=== PATIENT | female | born 1930 | race Caucasian/White ===

== ENCOUNTER 2017-04-15 20:36 | Inpatient (IN) | payer MEDICARE, BC ==
[~2017-04-15] VITALS: Ht 158.8 cm; Wt 98.5 kg
[2017-04-15 21:36] LABS: BASO % 1 % (0-3); EOS % 3 % (0-3); HEMATOCRIT 30.9 % (36.0-47.0); LYMPH # 1.3 x10^3/uL (1.0-4.8); LYMPH % 20 % (24-48); MEAN CORPUSCULAR HEMOGLOBIN 32 pg (25-35); MEAN CORPUSCULAR HGB CONC 36 g/dL (31-37); MEAN CORPUSCULAR VOLUME 89 fL (79-100); MONO % 14 % (0-9); NEUT % 63 % (31-73); PLATELET COUNT 109 x10^3/uL (140-400); RED BLOOD COUNT 3.46 x10^6/uL (3.50-5.40); RED CELL DISTRIBUTION WIDTH 14.7 % (11.5-14.5); WHITE BLOOD COUNT 6.5 x10^3/uL (4.0-11.0)
--- NOTE | 2017-04-15 21:37 | PHYS DOC ---
Past Medical History Past Medical History: CHF, Diabetes-Type II, High Cholesterol, Hypertension Past Surgical History: Other Additional Past Surgical Histo: heart valve Alcohol Use: None Drug Use: None Adult General Chief Complaint Chief Complaint: FEVER HPI HPI Patient is a 87 year old F who presents with low-grade temp for the past day. She had recent heart valve replacement done at [facility] and was discharged this week. Discharge instructions stated that the patient developed a low-grade temperature to return to the emergency room immediately. Patient has been complaining of increased urinary frequency with a temperature of 100.2 at home. Patient also complained of increased soreness of breath with exertion however when she is sitting down or lying down she is not short of breath. Patient denies any chest pain. Patient denies any nausea/vomiting/diarrhea. Patient has no other complaints. PCP: Dr. Domingo Pertinent exam findings: Heart was regular rate and rhythm without murmurs Lungs are clear to auscultation bilaterally without crackles wheezes or rales ED course: Patient was seen and examined in the emergency room CBC, CMP, UA, blood cultures , lactic acid, chest x-ray, EKG were ordered 0028: Discussed plan with the patient to admit for treatment of a hospital- acquired pneumonia 0031: Patient will be admitted to Dr. Maier Pertinent results: 2050: Sinus tach rate of 103 no STEMI CTA of the chest shows pneumonia with no PE Troponin 0.96 MDM: After reviewing the chart, CC/HPI/PMH, physical exam, [lab results], [ radiological results], do not believe the patient is having acute GA despite the elevated troponin which I believe is elevated from her recent heart procedure however the patient does have pneumonia requiring admission to the hospital for IV antibiotics because it hospital-acquired. Review of Systems Review of Systems GEN: Low-grade temperature HEENT: Denies blurred vision, sore throat CV: Denies chest pain RESP: Shortness of breath GI: Increased urinary frequency NEURO: Denies confusion, dizziness MSK: Denies weakness, joint pain/swelling Current Medications Current Medications Current Medications Medications (Trade) Dose Ordered Sig/Karina Start Time Stop Time Status Last Admin Dose Admin Azithromycin 250 ml @ 250 mls/hr 1X ONCE 04/16/17 01:00 04/16/17 01:00 DC Ceftriaxone Sodium 50 ml @ 100 mls/hr 1X ONCE 04/16/17 00:30 04/16/17 00:30 DC Info (Do NOT chart on this entry -- for MONITORING) 1 each PRN DAILY PRN 04/15/17 22:30 04/17/17 22:29 Iohexol (Omnipaque 300 Mg/ml) 60 ml 1X ONCE 04/15/17 23:00 04/15/17 23:01 DC Levofloxacin/ Dextrose 150 ml @ 100 mls/hr 1X ONCE 04/16/17 01:00 04/16/17 02:29 Morphine Sulfate 2 mg PRN Q2HR PRN 04/16/17 00:30 04/17/17 00:29 UNV Ondansetron HCl (Zofran) 4 mg PRN Q8HRS PRN 04/16/17 00:30 04/17/17 00:29 Piperacillin Sod/ Tazobactam Sod 4.5 gm/Sodium Chloride 100 ml @ 200 mls/hr 1X ONCE 04/16/17 01:00 04/16/17 01:29 Vancomycin HCl 1.25 gm/Sodium Chloride 500 ml @ 250 mls/hr 1X STAT 04/16/17 00:18 04/16/17 02:17 UNV Allergies Allergies Allergies Coded Allergies Type Severity Reaction Last Updated Verified meperidine Allergy Intermediate 04/15/17 Yes morphine Allergy Intermediate 04/15/17 Yes Physical Exam Physical Exam GEN.: No apparent distress. Alert and oriented. HEENT: Head is normocephalic, atraumatic NECK: Supple. LUNGS: CTAB. HEART: RRR, S1, S2 present. Peripheral pulses intact ABDOMEN: Soft, nontender. Positive bowel sounds. EXTREMITIES: Without any cyanosis. NEUROLOGIC: Normal speech, normal tone PSYCHIATRIC: Normal affect, normal mood. SKIN: No ulcerations Current Patient Data Vital Signs Vital Signs Date Time Temp Pulse Resp B/P (MAP) Pulse Ox O2 Delivery O2 Flow Rate FiO2 04/15/17 21:03 97.9 107 20 158/72 (100) 96 Room Air 97.9 Lab Values Laboratory Tests Test 04/15/17 21:10 04/15/17 21:34 White Blood Count 6.5 x10^3/uL (4.0-11.0) Red Blood Count 3.46 x10^6/uL (3.50-5.40) L Hemoglobin 11.0 g/dL (12.0-15.5) L Hematocrit 30.9 % (36.0-47.0) L Mean Corpuscular Volume 89 fL (79-100) Mean Corpuscular Hemoglobin 32 pg (25-35) Mean Corpuscular Hemoglobin Concent 36 g/dL (31-37) Red Cell Distribution Width 14.7 % (11.5-14.5) H Platelet Count 109 x10^3/uL (140-400) L Neutrophils (%) (Auto) 63 % (31-73) Lymphocytes (%) (Auto) 20 % (24-48) L Monocytes (%) (Auto) 14 % (0-9) H Eosinophils (%) (Auto) 3 % (0-3) Basophils (%) (Auto) 1 % (0-3) Neutrophils # (Auto) 4.1 x10^3uL (1.8-7.7) Lymphocytes # (Auto) 1.3 x10^3/uL (1.0-4.8) Monocytes # (Auto) 0.9 x10^3/uL (0.0-1.1) Eosinophils # (Auto) 0.2 x10^3/uL (0.0-0.7) Basophils # (Auto) 0.0 x10^3/uL (0.0-0.2) Sodium Level 139 mmol/L (136-145) Potassium Level 4.0 mmol/L (3.5-5.1) Chloride Level 105 mmol/L (98-107) Carbon Dioxide Level 23 mmol/L (21-32) Anion Gap 11 (6-14) Blood Urea Nitrogen 17 mg/dL (7-20) Creatinine 1.1 mg/dL (0.6-1.0) H Estimated GFR (Cockcroft-Gault) 46.8 BUN/Creatinine Ratio 15 (6-20) Glucose Level 159 mg/dL (70-99) H Lactic Acid Level 1.2 mmol/L (0.4-2.0) Calcium Level 8.6 mg/dL (8.5-10.1) Total Bilirubin 0.6 mg/dL (0.2-1.0) Aspartate Amino Transferase (AST) 27 U/L (15-37) Alanine Aminotransferase (ALT) 31 U/L (14-59) Alkaline Phosphatase 102 U/L (46-116) Troponin I Quantitative 0.096 ng/mL (0.000-0.055) Total Protein 6.5 g/dL (6.4-8.2) Albumin 3.0 g/dL (3.4-5.0) L Albumin/Globulin Ratio 0.9 (1.0-1.7) L Lipase 163 U/L (73-393) Urine Collection Type Unknown Urine Color Yellow Urine Clarity Clear Urine pH 6.0 Urine Specific [place] 1.010 Urine Protein Negative mg/dL (NEG-TRACE) Urine Glucose (UA) Negative mg/dL (NEG) Urine Ketones (Stick) Negative mg/dL (NEG) Urine Blood Negative (NEG) Urine Nitrite Negative (NEG) Urine Bilirubin Negative (NEG) Urine Urobilinogen Dipstick 0.2 mg/dL (0.2 mg/dL) Urine Leukocyte Esterase Negative (NEG) Urine RBC 0 /HPF (0-2) Urine WBC Occ /HPF (0-4) Urine Squamous Epithelial Cells Few /LPF Urine Bacteria 0 /HPF (0-FEW) Laboratory Tests 04/15/17 21:10 Laboratory Tests 04/15/17 21:10 EKG EKG Sinus tach rate of 103 no STEMI [] Radiology/Procedures Radiology/Procedures CTA chest: IMPRESSION: 1. No evidence of pulmonary embolism. 2. Coronary artery calcifications. 3. Diffuse groundglass airspace opacities identified in the bilateral lungs could be pulmonary edema or infiltrates. Patchy right upper lobe, bibasilar lung airspace opacities likely pneumonia or atelectasis. 4. 2.4 cm hyperdensity identified in the right kidney could be hyperdense cyst or mass. Recommend follow-up nonemergent ultrasound kidneys. Electronically signed by: Manuelito Titus MD (04/15/2017 11:33 PM) CXR: Patchy infiltrates bilateral lower lobes [] Course & Med Decision Making Course & Med Decision Making Pertinent Labs and Imaging studies reviewed. (See chart for details) [] Dragon Disclaimer Dragon Disclaimer This electronic medical record was generated, in whole or in part, using a voice recognition dictation system. Departure Departure Impression: Primary Impression: Hospital-acquired pneumonia Additional Impression: Elevated troponin Disposition: 09 ADMITTED INPATIENT Admitting Physician: Harshil Maier Condition: STABLE Problem Qualifiers GOVIND STRATTON DO Apr 15, 2017 21:37
[2017-04-15 21:38] LABS: CALCIUM 8.6 mg/dL (8.5-10.1); CREATININE 1.1 mg/dL (0.6-1.0); GFR 46.8
[2017-04-15 21:41] LABS: BILIRUBIN,URINE NEGATIVE (NEG); GLUCOSE,URINE NEGATIVE (NEG); NITRITE,URINE NEGATIVE (NEG); PROTEIN,URINE NEGATIVE (NEG-TRACE); UROBILINOGEN,URINE 0.2 mg/dL (0.2 mg/dL)
[2017-04-15 21:44] LABS: ALBUMIN/GLOBULIN RATIO 0.9 (1.0-1.7); TOTAL BILIRUBIN 0.6 mg/dL (0.2-1.0); TOTAL PROTEIN 6.5 g/dL (6.4-8.2)
[2017-04-15 21:45] LABS: BACTERIA,URINE 0 /HPF (0-FEW); RBC,URINE 0 /HPF (0-2); SQUAMOUS EPITHELIAL CELL,UR FEW /LPF; WBC,URINE OCC /HPF (0-4)
[2017-04-15] MEDS ORDERED: CONTRAST GIVEN MC PRN (22:30)
[2017-04-15] MEDS ORDERED: IOHEXOL 300 MG/ML 75 ML VIAL IV ONE (23:00)
--- NOTE | 2017-04-15 23:36 | RAD ---
Examination: CT angiogram of the chest HISTORY: History of shortness of breath, fever COMPARISON: None available TECHNIQUE: CT angiography images of chest were performed with IV contrast. Coronal and sagittal 3-D MIP reformats are performed. Exposure: One or more of the following individualized dose reduction techniques were utilized for this examination: 1. Automated exposure control 2. Adjustment of the mA and/or kV according to patient size 3. Use of iterative reconstruction technique. FINDINGS: The visualized thyroid gland appears unremarkable. Mild cardiomegaly. Surgical changes identified at the aortic root. Coronary artery calcifications. There is no evidence of filling defect identified in the main pulmonary arterial trunk and right and left main pulmonary arteries and the visualized lobar, segmental branch of the pulmonary arteries. Patchy airspace opacities identified in the right upper lobe, bibasilar lungs likely pneumonia or atelectasis. Ground glass airspace opacities identified in the bilateral pulmonary edema or groundglass infiltrates. Trace bilateral pleural effusions. Mild cardiomegaly. The visualized liver, spleen, adrenal unremarkable. Mild fat stranding identified about the bilateral kidneys, nonspecific. There is a exophytic density measuring 2.4 x 2.4 cm identified in the right kidney and measuring 49 Hounsfield units could be hyperdense cyst or mass. Moderate aortic atherosclerosis. Moderate degenerative changes thoracic spine. IMPRESSION: 1. No evidence of pulmonary embolism. 2. Coronary artery calcifications. 3. Diffuse groundglass airspace opacities identified in the bilateral lungs could be pulmonary edema or infiltrates. Patchy right upper lobe, bibasilar lung airspace opacities likely pneumonia or atelectasis. 4. 2.4 cm hyperdensity identified in the right kidney could be hyperdense cyst or mass. Recommend follow-up nonemergent ultrasound kidneys. Electronically signed by: Manuelito Titus MD (04/15/2017 11:33 PM)
[2017-04-16] VITALS (7 sets, daily range): BP systolic 110–135; BP diastolic 33–63
[2017-04-16] MEDS ORDERED: VANCOMYCIN 1.25 GM in IV NORMAL SALINE 500ML BAG 500 ML IV STA (00:18)
[2017-04-16] MEDS ORDERED: MORPHINE SULFATE 2 MG/ML DISP.SYRIN. IV PRN (00:30)
[2017-04-16] MEDS ORDERED: ONDANSETRON PF 4 MG/2 ML VIAL. IV PRN ×2 (00:30→11:15)
[2017-04-16] MEDS ORDERED: AZITHRMYCN 500MG IVPB FOR OMNI 250 ML IV ONE (01:00)
[2017-04-16] MEDS ORDERED: PIPERACILLIN/TAZOBACTAM 4.5 GM in IV NORMAL SALINE 100ML 100 ML IV ONE (01:00)
[2017-04-16] MEDS ORDERED: VANCOMYCIN 2 GM in IV NORMAL SALINE 500ML BAG 500 ML IV ONE (01:30)
[2017-04-16] MEDS ORDERED: TRAM50TA PO (02:09)
[2017-04-16] MEDS ORDERED: LINA5TAB4 PO (02:09)
[2017-04-16] MEDS ORDERED: ALLO300T PO (02:09)
[2017-04-16] MEDS ORDERED: AMLO10TA4 PO (02:09)
[2017-04-16] MEDS ORDERED: MULT-154 PO (02:09)
[2017-04-16] MEDS ORDERED: CARV6.252 PO (02:09)
[2017-04-16] MEDS ORDERED: FURO20TA3 PO (02:09)
[2017-04-16] MEDS ORDERED: GABA-586 PO (02:09)
[2017-04-16] MEDS ORDERED: ATORVASTATIN CA80 MG PO (02:09)
[2017-04-16] MEDS ORDERED: CLOP75TA57 PO (02:09)
[2017-04-16] MEDS ORDERED: GLYB2.5T2 PO (02:09)
[2017-04-16] MEDS ORDERED: LISI20TA PO (02:09)
[2017-04-16] MEDS ORDERED: POTASSIUM CHLO10 MEQ PO (02:09)
[2017-04-16] MEDS ORDERED: FOLI1TAB16 PO (02:09)
[2017-04-16] MEDS ORDERED: DOCU100C28 PO (02:09)
[2017-04-16] MEDS ORDERED: METF500T4 PO (02:09)
[2017-04-16] MEDS ORDERED: ASPI-630 PO (02:09)
--- NOTE | 2017-04-16 02:24 | ACF ---
Admission Forms Criteria TELEMETRY CARE Telemetry Admission Guidelines (Place 'X' for any and all applicable criteria): Admission to telemetry [A] may be indicated for ANY ONE of the following(1)(2)(3 )(4)(5): [X]I. Cardiac disease, including ANY ONE of the following (9)(10)(11)(12)(13 ): [ ]a) Postacute MN [ ]b) Low-risk patients with ST-segment elevation MN who have undergone successful percutaneous coronary intervention [ ]c) Unstable angina [ ]d) Suspected MN (until it is ruled out) [ ]e) Post cardiac surgery (first 48 to 72 hours unless complications occur) [X]f) Acute arrhythmias (including significant tachycardia or bradycardia) [B] [ ]g) Firing of an implantable cardioverter defibrillator [C] [ ]h) Suspected pacemaker or implantable cardioverter defibrillator malfunction (10) [ ]i) New administration or adjustment of an antiarrhythmic drug [D ] [ ]j) Child admitted for acute congestive heart failure [ ]j) Long QT syndrome [ ]k) Advanced heart block (eg, second-degree Mobitz type II, third- degree heart block) [ ]l) Acute myocarditis or pericarditis [ ]m) Short-term (ambulatory or inpatient) monitoring after a cardiac procedure as indicated by ANY ONE of the following [E]: [ ]i) Electrophysiologic studies [ ]ii) Percutaneous coronary intervention with stent placement [ ]iii) Pacemaker placement with cardiac conduction defect [ ]iv) Implantable cardiac defibrillator placement [ ]II. Drug overdose or poisoning with substance that causes arrhythmias or QT prolongation (eg, phenothiazines, sympathomimetic agents, cyclic antidepressants, digitalis, antiarrhythmic drugs)(15) [ ]III. Short-term (ambulatory or inpatient) monitoring after therapeutic or diagnostic procedure requiring conscious sedation or anesthesia (eg, endoscopy, elective cardioversion) [ ]IV. Acute cerebrovascular even[F](18) [ ]V. Massive blood transfusion (eg, at least 10 units of packed red blood cells in 24 hours) [ ]. Variceal bleeding after endoscopy, sclerotherapy, or IV vasopressin [ ]VII. Uncorrected electrolyte abnormalities associated with an increased risk of dangerous arrhythmia [G]; examples include [ ]a) Hyperkalemia with attributable ECG changes [ ]b) Potassium greater than 6.5 mmol/L (mEq/L) in a patient without history of chronic renal disease [ ]c) Prolonged QT attributed to hypokalemia, hypomagnesemia, or hypocalcemia [ ]VIII.Unexplained syncope or other neurologic event suspected of being due to arrhythmia due to a finding that increases risk; examples include(19)(20)(21): [ ]a) High-risk ECG findings (eg, bifascicular block, bradycardia, abnormal QT interval, ventricular pre- excitation) [ ]b) History of previous syncope due to arrhythmia [ ]c) Abnormal ventricular function (eg, reduced ejection fraction ) [ ]d) Exertional or supine syncope [ ]e) Concerning syncope characteristics (eg, sudden loss of consciousness without prodrome) [ ]f) Family history of sudden [ ]g) Use of arrhythmogenic medication [ ]h) Suspected cardiac ischemia [ ]i) Known channelopathy (eg, long QT syndrome, Brugada syndrome, or catecholaminergic paroxysmal ventricular tachycardia) [ ]j) Known structural heart disease (eg, hypertrophic cardiomyopathy , severe valvular disease) [ ]k) Palpitations preceding syncope The original [employer] content created by [employer] has been revised. The portions of the content which have been revised are identified through the use of italic text or in bold, and [email or web address] has neither reviewed nor approved the modified material. All other unmodified content is copyright [employer]. Please see references footnoted in the original [employer] edition 2016 Admission Criteria Met?: Yes JIMMIE PARIKH Apr 16, 2017 02:24
[2017-04-16] MEDS ORDERED: BENZOCAINE/MENTHOL LOZENGE. PO PRN (02:30)
[2017-04-16] MEDS: VANCOMYCIN PER PHARMACY MC PRN ×2 (03:00→11:41)
--- NOTE | 2017-04-16 08:14 | RAD ---
Indication shortness of air. A single view of the chest was obtained. No prior imaging is available. Heart size is slightly enlarged.. There is no congestive heart failure or focal infiltrate seen. Visualized bony structures appear grossly intact. IMPRESSION: No acute finding apparent in the chest
--- NOTE | 2017-04-16 09:55 | PDOC ---
Provider Note Provider Note [id number] dyspnea pulm infilt pneumonia vs chf abx. BD, ARLENE Calle MD Apr 16, 2017 09:55
--- NOTE | 2017-04-16 10:53 | CONS ---
DATE OF CONSULTATION: 04/16/2017 I was asked to see this 87-year-old lady for shortness of breath, cough, abnormal chest x-ray. HISTORY OF PRESENT ILLNESS: She is a lifelong nonsmoker. She underwent heart valve replacement at [facility] on 04/11/2017, she was sent home on 04/14/2017. She started to feel weak and had low-grade fever up to 100.2. She has had increased shortness of breath and cough. She has small amount of sputum production. She denies pain. PAST MEDICAL HISTORY: CHF, diabetes mellitus, hypercholesterolemia, hypertension, status post heart valve replacement. ALLERGIES: MORPHINE. SOCIAL HISTORY: She is a lifelong nonsmoker. MEDICATIONS: She was given azithromycin, Rocephin, levofloxacin, Zosyn and vancomycin. REVIEW OF SYSTEMS: As mentioned as above. Other systems are otherwise negative. PHYSICAL EXAMINATION: GENERAL: This is an overweight lady. VITAL SIGNS: Her O2 saturation is 96%, respiratory rate 18, heart rate 89, blood pressure 135/63, temperature 97.9. HEENT: Normocephalic, atraumatic. Pupils equal, round, reactive to light. Throat is clear. Nose is clear. NECK: There is no JVD, lymphadenopathy or thyromegaly. CARDIOVASCULAR: Regular rate and rhythm. PMI is nondisplaced. CHEST: Inspection is normal. LUNGS: Clear to auscultation. There is no wheezing. ABDOMEN: Soft. Bowel sounds are good. There is no mass. EXTREMITIES: There is no edema. LYMPHATICS: There is no lymphadenopathy. NEUROLOGIC: Alert and oriented x 3. SKIN: Warm. LABORATORY DATA: I reviewed the following lab data. CT of the chest did not show pulmonary embolism, it showed coronary artery calcification, diffuse ground-glass opacities in bilateral lungs, patchy right upper lobe basilar opacity and right renal cyst. IMPRESSION: 1. Dyspnea, multifactorial in etiology. 2. Abnormal chest x-ray. 3. Pulmonary infiltrate, pneumonia versus congestive heart failure and she has had fever. I suspect this is dealing with pneumonia versus others. 4. Status post heart valve replacement. 5. Hypertension. 6. Diabetes mellitus. 7. Hypercholesterolemia. PLAN AND RECOMMENDATIONS: 1. Titrate FiO2 to keep O2 saturation 92%. 2. Start bronchodilator. 3. Continue vancomycin and Zosyn. 4. Panculture. 5. Monitor respiratory status very closely. 6. The findings and recommendations were discussed with the patient and her daughter. They understood and agreed to proceed with the plan. 7. PT, OT. 8. echo Thank you very much for allowing me to participate in care of this very nice lady. ARLENE DESIR M.D. DR: Chuckie JOB#: [id number] / [id number] SENTHIL
--- NOTE | 2017-04-16 11:08 | PDOC1 ---
History and Physical Family History Family History: Other (unknown to pt) Social History Smoke: No ALCOHOL: none Drugs: None Current Problem List Problem List Problems Medical Problems: (1) Elevated troponin Status: Acute Current Medications Current Medications Current Medications Medications (Trade) Dose Ordered Sig/Karina Start Time Stop Time Status Last Admin Dose Admin Albuterol/ Ipratropium (Duoneb) 3 ml RTQID 04/16/17 10:00 Azithromycin 250 ml @ 250 mls/hr 1X ONCE 04/16/17 01:00 04/16/17 01:00 DC Ceftriaxone Sodium 50 ml @ 100 mls/hr 1X ONCE 04/16/17 00:30 04/16/17 00:30 DC Info (Do NOT chart on this entry -- for MONITORING) 1 each PRN DAILY PRN 04/15/17 22:30 04/17/17 22:29 Iohexol (Omnipaque 300 Mg/ml) 60 ml 1X ONCE 04/15/17 23:00 04/15/17 23:01 DC Levofloxacin/ Dextrose 150 ml @ 100 mls/hr 1X ONCE 04/16/17 01:00 04/16/17 02:29 DC 04/16/17 00:54 100 MLS/HR Morphine Sulfate 2 mg PRN Q2HR PRN 04/16/17 00:30 04/17/17 00:29 UNV Ondansetron HCl (Zofran) 4 mg PRN Q8HRS PRN 04/16/17 00:30 04/17/17 00:29 Piperacillin Sod/ Tazobactam Sod 4.5 gm/Sodium Chloride 100 ml @ 200 mls/hr 1X ONCE 04/16/17 01:00 04/16/17 01:29 DC 04/16/17 00:51 200 MLS/HR Throat Lozenges (Cepacol Sore Throat Lozenge) 1 kelly PRN Q2HRS PRN 04/16/17 02:30 04/16/17 02:31 1 KELLY Vancomycin HCl 1 each 1X ONCE 04/17/17 22:30 04/17/17 22:31 Vancomycin HCl (Vanco Per Pharmacy) 1 each PRN DAILY PRN 04/16/17 00:30 04/16/17 03:00 1 EACH Vancomycin HCl 1.25 gm/Sodium Chloride 500 ml @ 250 mls/hr 1X STAT 04/16/17 00:18 04/16/17 02:17 UNV Vancomycin HCl 1.5 gm/Sodium Chloride 500 ml @ 250 mls/hr Q24H 04/16/17 23:00 Vancomycin HCl 2 gm/Sodium Chloride 500 ml @ 250 mls/hr 1X ONCE 04/16/17 01:30 04/16/17 03:29 DC 04/16/17 01:44 250 MLS/HR Allergies Allergies Allergies Coded Allergies Type Severity Reaction Last Updated Verified meperidine Allergy Intermediate 04/15/17 Yes morphine Allergy Intermediate 04/15/17 Yes ROS Review of System CONSTITUTIONAL: No fever or chills EYES: No recent changes SKIN: No rash or itching CARDIOVASCULAR: No chest pain, syncope, palpitations, or edema RESPIRATORY: cough GASTROINTESTINAL: No nausea, vomiting or abdominal pain NEUROLOGICAL: No headaches or weakness ENDOCRINE: No cold or heat intolerance GENITOURINARY: No urgency or frequency of urination MUSCULOSKELETAL: No back pain or joint pain LYMPHATICS: No enlarged lymph nodes PSYCHIATRIC: No anxiety or depression Physical Exam Physical Exam GEN.: No apparent distress. Alert and oriented. obese HEENT: Head is normocephalic, atraumatic NECK: Supple. no JVD LUNGS: Clear to auscultation. basal rales. HEART: RRR, S1, S2 present. Peripheral pulses intact ABDOMEN: Soft, nontender. Positive bowel sounds. EXTREMITIES: Without any cyanosis. NEUROLOGIC: Normal speech, normal tone PSYCHIATRIC: Normal affect, normal mood. SKIN: Vitals Vitals Vital Signs Date Time Temp Pulse Resp B/P (MAP) Pulse Ox O2 Delivery O2 Flow Rate FiO2 04/16/17 07:00 97.9 89 18 135/63 (87) 96 Room Air 97.9 Labs Labs Laboratory Tests Test 04/15/17 21:10 04/15/17 21:34 White Blood Count 6.5 x10^3/uL (4.0-11.0) Red Blood Count 3.46 x10^6/uL (3.50-5.40) Hemoglobin 11.0 g/dL (12.0-15.5) Hematocrit 30.9 % (36.0-47.0) Mean Corpuscular Volume 89 fL (79-100) Mean Corpuscular Hemoglobin 32 pg (25-35) Mean Corpuscular Hemoglobin Concent 36 g/dL (31-37) Red Cell Distribution Width 14.7 % (11.5-14.5) Platelet Count 109 x10^3/uL (140-400) Neutrophils (%) (Auto) 63 % (31-73) Lymphocytes (%) (Auto) 20 % (24-48) Monocytes (%) (Auto) 14 % (0-9) Eosinophils (%) (Auto) 3 % (0-3) Basophils (%) (Auto) 1 % (0-3) Neutrophils # (Auto) 4.1 x10^3uL (1.8-7.7) Lymphocytes # (Auto) 1.3 x10^3/uL (1.0-4.8) Monocytes # (Auto) 0.9 x10^3/uL (0.0-1.1) Eosinophils # (Auto) 0.2 x10^3/uL (0.0-0.7) Basophils # (Auto) 0.0 x10^3/uL (0.0-0.2) Sodium Level 139 mmol/L (136-145) Potassium Level 4.0 mmol/L (3.5-5.1) Chloride Level 105 mmol/L (98-107) Carbon Dioxide Level 23 mmol/L (21-32) Anion Gap 11 (6-14) Blood Urea Nitrogen 17 mg/dL (7-20) Creatinine 1.1 mg/dL (0.6-1.0) Estimated GFR (Cockcroft-Gault) 46.8 BUN/Creatinine Ratio 15 (6-20) Glucose Level 159 mg/dL (70-99) Lactic Acid Level 1.2 mmol/L (0.4-2.0) Calcium Level 8.6 mg/dL (8.5-10.1) Total Bilirubin 0.6 mg/dL (0.2-1.0) Aspartate Amino Transf (AST/SGOT) 27 U/L (15-37) Alanine Aminotransferase (ALT/SGPT) 31 U/L (14-59) Alkaline Phosphatase 102 U/L (46-116) Troponin I Quantitative 0.096 ng/mL (0.000-0.055) Total Protein 6.5 g/dL (6.4-8.2) Albumin 3.0 g/dL (3.4-5.0) Albumin/Globulin Ratio 0.9 (1.0-1.7) Lipase 163 U/L (73-393) Urine Collection Type Unknown Urine Color Yellow Urine Clarity Clear Urine pH 6.0 Urine Specific [place] 1.010 Urine Protein Negative mg/dL (NEG-TRACE) Urine Glucose (UA) Negative mg/dL (NEG) Urine Ketones (Stick) Negative mg/dL (NEG) Urine Blood Negative (NEG) Urine Nitrite Negative (NEG) Urine Bilirubin Negative (NEG) Urine Urobilinogen Dipstick 0.2 mg/dL (0.2 mg/dL) Urine Leukocyte Esterase Negative (NEG) Urine RBC 0 /HPF (0-2) Urine WBC Occ /HPF (0-4) Urine Squamous Epithelial Cells Few /LPF Urine Bacteria 0 /HPF (0-FEW) Laboratory Tests Test 04/15/17 21:10 04/15/17 21:34 White Blood Count 6.5 x10^3/uL (4.0-11.0) Red Blood Count 3.46 x10^6/uL (3.50-5.40) Hemoglobin 11.0 g/dL (12.0-15.5) Hematocrit 30.9 % (36.0-47.0) Mean Corpuscular Volume 89 fL (79-100) Mean Corpuscular Hemoglobin 32 pg (25-35) Mean Corpuscular Hemoglobin Concent 36 g/dL (31-37) Red Cell Distribution Width 14.7 % (11.5-14.5) Platelet Count 109 x10^3/uL (140-400) Neutrophils (%) (Auto) 63 % (31-73) Lymphocytes (%) (Auto) 20 % (24-48) Monocytes (%) (Auto) 14 % (0-9) Eosinophils (%) (Auto) 3 % (0-3) Basophils (%) (Auto) 1 % (0-3) Neutrophils # (Auto) 4.1 x10^3uL (1.8-7.7) Lymphocytes # (Auto) 1.3 x10^3/uL (1.0-4.8) Monocytes # (Auto) 0.9 x10^3/uL (0.0-1.1) Eosinophils # (Auto) 0.2 x10^3/uL (0.0-0.7) Basophils # (Auto) 0.0 x10^3/uL (0.0-0.2) Sodium Level 139 mmol/L (136-145) Potassium Level 4.0 mmol/L (3.5-5.1) Chloride Level 105 mmol/L (98-107) Carbon Dioxide Level 23 mmol/L (21-32) Anion Gap 11 (6-14) Blood Urea Nitrogen 17 mg/dL (7-20) Creatinine 1.1 mg/dL (0.6-1.0) Estimated GFR (Cockcroft-Gault) 46.8 BUN/Creatinine Ratio 15 (6-20) Glucose Level 159 mg/dL (70-99) Lactic Acid Level 1.2 mmol/L (0.4-2.0) Calcium Level 8.6 mg/dL (8.5-10.1) Total Bilirubin 0.6 mg/dL (0.2-1.0) Aspartate Amino Transf (AST/SGOT) 27 U/L (15-37) Alanine Aminotransferase (ALT/SGPT) 31 U/L (14-59) Alkaline Phosphatase 102 U/L (46-116) Troponin I Quantitative 0.096 ng/mL (0.000-0.055) Total Protein 6.5 g/dL (6.4-8.2) Albumin 3.0 g/dL (3.4-5.0) Albumin/Globulin Ratio 0.9 (1.0-1.7) Lipase 163 U/L (73-393) Urine Collection Type Unknown Urine Color Yellow Urine Clarity Clear Urine pH 6.0 Urine Specific [place] 1.010 Urine Protein Negative mg/dL (NEG-TRACE) Urine Glucose (UA) Negative mg/dL (NEG) Urine Ketones (Stick) Negative mg/dL (NEG) Urine Blood Negative (NEG) Urine Nitrite Negative (NEG) Urine Bilirubin Negative (NEG) Urine Urobilinogen Dipstick 0.2 mg/dL (0.2 mg/dL) Urine Leukocyte Esterase Negative (NEG) Urine RBC 0 /HPF (0-2) Urine WBC Occ /HPF (0-4) Urine Squamous Epithelial Cells Few /LPF Urine Bacteria 0 /HPF (0-FEW) VTE Prophylaxis Ordered VTE Prophylaxis Devices: Yes VTE Pharmacological Prophylaxi: Yes CLAYTON WATSON MD Apr 16, 2017 11:08
[2017-04-16] MEDS ORDERED: traMADol 50 MG TABLET PO PRN (11:15)
[2017-04-16] MEDS ORDERED: levOFLOXacin PER PHARMACY. MC PRN (11:15)
[2017-04-16] MEDS ORDERED: ALBUTEROL SULFATE 2.5 MG/3 ML NEBU. NEB PRN (11:15)
[2017-04-16] MEDS ORDERED: hydrALAZINE 20 MG/ML VIAL. IVP PRN (11:15)
[2017-04-16] MEDS ORDERED: ACETAMINOPHEN 325 MG TABLET. PO PRN (11:15)
[2017-04-16] MEDS ORDERED: VANCOMYCIN PER PHARMACY MC PRN (11:15)
[2017-04-16] MEDS ORDERED: FUROSEMIDE 20 MG/2 ML VIAL. IVP ONE (11:15)
[2017-04-16] MEDS: IPRATRPIUM/ALBUTEROL 0.5/2.5MG 3 ML NEBU. NEB SCH ×3 (11:59→20:24)
[2017-04-16] MEDS: GABAPENTIN 300 MG CAPSULE. PO SCH ×2 (12:25→21:17)
[2017-04-16] MEDS: ASPIRIN CHEWABLE 81 MG TABLET. PO SCH (12:25)
[2017-04-16] MEDS: POTASSIUM CHLORIDE 10 MEQ TABLET.ER. PO SCH (12:26)
[2017-04-16] MEDS: amLODIPine BESYLATE 10 MG TABLET PO SCH (12:26)
[2017-04-16] MEDS: FOLIC ACID 1 MG TABLET. PO SCH (12:26)
[2017-04-16] MEDS: DOCUSATE SODIUM 100 MG CAPSULE. PO SCH (12:27)
[2017-04-16] MEDS: ALLOPURINOL 300 MG TABLET. PO SCH (12:27)
[2017-04-16] MEDS: LISINOPRIL 40 MG TABLET. PO SCH (12:27)
[2017-04-16] MEDS: LINAGLIPTIN 5 MG TABLET PO SCH (12:27)
[2017-04-16] MEDS: glyBURIDE 1.25 MG TABLET PO SCH (12:27)
[2017-04-16] MEDS: FUROSEMIDE 20 MG TABLET PO SCH (12:27)
[2017-04-16] MEDS: MULTIVITAMIN with MINERAL TABLET. PO SCH (12:27)
[2017-04-16] MEDS: CARVEDILOL 6.25 MG TABLET. PO SCH ×2 (12:28→17:04)
--- NOTE | 2017-04-16 12:30 | HP ---
ADMIT DATE: 04/16/2017 CHIEF COMPLAINT: Fever and cough. HISTORY OF PRESENT ILLNESS: An 87-year-old female patient with prior history of congestive heart failure, type 2 diabetes mellitus, hypertension and recent TAVR at [facility] on Monday. The patient was in the hospital until Monday and discharged home; however, she did feel good in Monday and noted to have some low-grade temperature. She felt some uneasiness. She also has some increased frequency of urine and noted to have a temperature of 100.2. The patient denies any chest pain; however, she has shortness of breath with mobility, denies any other symptoms such as passed out, nausea, vomiting, or diarrhea. She was not treated with antibiotics in the hospital. She was not diagnosed with any infection there. PAST MEDICAL HISTORY: CHF, type 2 diabetes mellitus, hyperlipidemia, and hypertension. PAST SURGICAL HISTORY: Recent TAVR. SOCIAL HISTORY: No smoking, no alcohol, and no drug abuse. ALLERGIES: MORPHINE AND MEPERIDINE. REVIEW OF SYSTEMS: Please see my electronic H and P. PHYSICAL EXAMINATION: Please see my electronic H and P. LABORATORY DATA: WBC 6.5, hemoglobin is 11.0, MCV is 89, and platelets 109. Chemistries: Sodium 139, potassium is 4.0, carbon dioxide 23, creatinine 1.1, troponin 0.096. Urine; protein negative, nitrites negative, and leukocyte esterase negative. IMAGING STUDIES: 1. CTA of the chest, no evidence of pulmonary embolism, coronary artery calcification noted, diffuse ground glass air space opacities had into the bilateral lungs; possible pulmonary edema versus infiltrates. 2. A 2.4 cm hyperdensity identified in the right kidney, cyst versus mass follow up with ultrasound. 3. Chest x-ray, no acute findings noted. 4. EKG not able to obtain the report. As per the ER report, it is sinus tachycardia, no ST elevation CT. ASSESSMENT AND PLAN: 1. Cough, weakness and fever, suspected healthcare-associated pneumonia. 2. Mild elevation of troponin, recent transcatheter aortic valve replacement. 3. Type 2 diabetes mellitus. 4. Hypertension. 5. Hyperlipidemia. 6. Obesity, BMI 39. PLAN: 1. The patient has been started on broad spectrum antibiotics such as vancomycin, Zosyn and Levaquin, pharmacy to dose Levaquin and vancomycin according to renal functions. 2. Antibiotics needs to be adjusted based on clinical response. 3. The patient had mild elevation of troponins; denies any chest pain. I will get two more sets of troponins and consult Cardiology. 4. Pulmonology has been following. 5. Continue periodic nebulizations and give breathing treatments. 6. Monitor CBC, BMP in a.m. 7. Sliding scale insulin. 8. I will hold metformin due to renal functions. 9. Plan discussed with patient and daughter at bedside, agreeable with current plan. 10. Physical therapy and occupational therapy. 11. DVT prophylaxis with Lovenox. 12. The patient was not on any blood thinners. She was on Plavix and we will continue at this time. CLAYTON WATSON MD DR: MARY/connie JOB#: [id number] / [id number] SENTHIL
[2017-04-16] MEDS: ENOXAPARIN 40 MG/0.4 ML SYRINGE. SQ SCH (12:32)
[2017-04-16] MEDS: PIPERACILLIN/TAZOBACTAM 3.375 GM in IV NORMAL SALINE 50ML 50 ML IV SCH ×2 (12:36→17:04)
[2017-04-16] MEDS: CLOPIDOGREL BISULFATE 75 MG TABLET PO SCH (12:37)
--- NOTE | 2017-04-16 12:50 | EKG ---
[facility] [address] [place] [address] Test Date: 2017-04-15 Test Time: 20:51:19 Pat Name: KATERINA PEARSON Department: Room: 432 1 Gender: F Agriculture Instructor: : [id number] Requested By: GOVIND STRATTON Order Number: [id number] Reading MD: Sherice Ridley Measurements Intervals [place] Rate: 103 P: -141 LA: 220 QRS: -17 QRSD: 110 T: 97 QT: 350 QTc: 461 Interpretive Statements SINUS RHYTHM PROLONGED LA INTERVAL LEFTWARD AXIS LVH WITH REPOLARIZATION ABNORMALITY QRS(T) CONTOUR ABNORMALITY CANNOT RULE OUT ANTEROSEPTAL MYOCARDIAL DAMAGE RI6.01 Unconfirmed report No previous ECG available for comparison Electronically Signed On 04-16-2017 21:23:33 CDT by Sherice Ridley
[2017-04-16] MEDS ORDERED: TEMAZEPAM 7.5 MG CAPSULE PO PRN (19:45)
[2017-04-16] MEDS: ATORVASTATIN CALCIUM 40 MG TABLET. PO SCH (21:18)
[2017-04-16] MEDS: TEMAZEPAM 7.5 MG CAPSULE PO PRN (21:20)
[2017-04-17] MEDS: PIPERACILLIN/TAZOBACTAM 3.375 GM in IV NORMAL SALINE 50ML 50 ML IV SCH ×4 (00:09→16:57)
[2017-04-17] MEDS: VANCOMYCIN 1.5 GM in IV NORMAL SALINE 500ML BAG 500 ML IV SCH (02:04)
[2017-04-17 03:18] VITALS: BP 112/48
[2017-04-17 04:36] LABS: BASO % 1 % (0-3); EOS % 5 % (0-3); HEMATOCRIT 30.9 % (36.0-47.0); HEMOGLOBIN 10.5 g/dL (12.0-15.5); LYMPH # 1.4 x10^3/uL (1.0-4.8); LYMPH % 24 % (24-48); MEAN CORPUSCULAR HEMOGLOBIN 31 pg (25-35); MEAN CORPUSCULAR HGB CONC 34 g/dL (31-37); MEAN CORPUSCULAR VOLUME 91 fL (79-100); MONO % 14 % (0-9); NEUT % 57 % (31-73); PLATELET COUNT 109 x10^3/uL (140-400); RED CELL DISTRIBUTION WIDTH 14.8 % (11.5-14.5)
[2017-04-17 05:07] LABS: CALCIUM 8.2 mg/dL (8.5-10.1); CREATININE 1.3 mg/dL (0.6-1.0); GFR 38.6; POTASSIUM 3.7 mmol/L (3.5-5.1)
[2017-04-17 07:00] VITALS: BP 138/51
[2017-04-17] MEDS: IPRATRPIUM/ALBUTEROL 0.5/2.5MG 3 ML NEBU. NEB SCH ×4 (07:39→20:00)
[2017-04-17] MEDS: ASPIRIN CHEWABLE 81 MG TABLET. PO SCH (08:28)
[2017-04-17] MEDS: ENOXAPARIN 40 MG/0.4 ML SYRINGE. SQ SCH (08:28)
[2017-04-17] MEDS: CARVEDILOL 6.25 MG TABLET. PO SCH ×2 (08:30→16:56)
[2017-04-17] MEDS: ALLOPURINOL 300 MG TABLET. PO SCH (08:31)
[2017-04-17] MEDS: glyBURIDE 1.25 MG TABLET PO SCH (08:31)
[2017-04-17] MEDS: CLOPIDOGREL BISULFATE 75 MG TABLET PO SCH (08:31)
[2017-04-17] MEDS: LINAGLIPTIN 5 MG TABLET PO SCH (08:31)
[2017-04-17] MEDS: FOLIC ACID 1 MG TABLET. PO SCH (08:31)
[2017-04-17] MEDS: FUROSEMIDE 20 MG TABLET PO SCH (08:31)
[2017-04-17] MEDS: MULTIVITAMIN with MINERAL TABLET. PO SCH (08:32)
[2017-04-17] MEDS: GABAPENTIN 300 MG CAPSULE. PO SCH ×2 (08:32→21:34)
[2017-04-17] MEDS: POTASSIUM CHLORIDE 10 MEQ TABLET.ER. PO SCH (08:32)
[2017-04-17] MEDS: amLODIPine BESYLATE 10 MG TABLET PO SCH (08:32)
[2017-04-17] MEDS: LISINOPRIL 40 MG TABLET. PO SCH (08:33)
[2017-04-17] MEDS: DOCUSATE SODIUM 100 MG CAPSULE. PO SCH (09:00)
[2017-04-17 11:00] VITALS: BP 114/52
--- NOTE | 2017-04-17 13:06 | PDOC2 ---
JULIANNA SIEGEL SURGICAL GARMENT ASSEMBLY SUPERVISOR 04/17/17 1306: CARDIAC CONSULT DATE OF CONSULT Date of Consult DATE: 04/17/17 TIME: 12:58 REASON FOR CONSULT Reason for Consult: Recent TAVR Elevated troponin REFERRING PHYSICIAN Referring Physician: Dr. Maier SOURCE Source: Chart review, Patient HISTORY OF PRESENT ILLNESS HISTORY OF PRESENT ILLNESS This is an 87 yo female who presented with complaints of shortness of breath. She recently underwent TAVR at [facility] on 04/11/17 and was discharged home on Monday. Patient reports feeling well upon discharge. The follow day, patient reports experiencing mild shortness of breath and developed coughing. Reports feeling"horrible" and decided to come into the emergency room for further evaluation. Denies any chest pain, palpitations, dizziness, diaphoresis, or nausea/vomiting. Has been compliant with medications. Does think she has had some weight gain recently. PAST MEDICAL HISTORY Cardiovascular: CHF, HTN, Aortic stenosis Pulmonary: No pertinent hx CENTRAL NERVOUS SYSTEM: CVA GI: GERD Heme/Onc: No pertinent hx Hepatobiliary: No pertinent hx Psych: No pertinent hx Musculoskeletal: Osteoarthritis Rheumatologic: Gout Renal/: Chronic renal insuff Endocrine: Diabetes Dermatology: No pertinent hx PAST SURGICAL HISTORY Past Surgical History: Cholecystectomy, Total knee replacement (bilateral ), Tonsillectomy, Other (TAVR) FAMILY HISTORY Family History: Coronary Artery Disease SOCIAL HISTORY Smoke: No ALCOHOL: none Drugs: None Lives: with Family CURRENT MEDICATIONS CURRENT MEDICATIONS Current Medications Medications (Trade) Dose Ordered Sig/Karina Route PRN Reason Start Time Stop Time Status Last Admin Dose Admin Vancomycin HCl 1.5 gm/Sodium Chloride 500 ml @ 250 mls/hr Q24H IV 04/17/17 02:00 04/17/17 02:04 Atorvastatin Calcium (Lipitor) 80 mg QHS PO 04/16/17 21:00 04/16/17 21:18 Temazepam (Restoril) 7.5 mg PRN QHS PRN PO INSOMNIA 04/16/17 20:00 04/16/17 21:20 ALLERGIES ALLERGIES: Coded Allergies: meperidine (Verified Allergy, Intermediate, 04/15/17) morphine (Verified Allergy, Intermediate, 04/15/17) ROS Review of System 14 point ROS conducted with pertinent positives noted above in HPI PHYSICAL EXAM General: Alert, Oriented X3, Cooperative, No acute distress HEENT: Atraumatic, Mucous membr. moist/pink Lungs: Normal air movement Heart: Regular rate, Normal S1, Normal S2 Abdomen: Soft Extremities: No edema, Normal pulses Skin: No significant lesion Neuro: Normal speech, Sensation intact Psych/Mental Status: Mental status NL, Mood NL MUSCULOSKELETAL: Osteoarthritic changes both hands VITALS VITALS Vital Signs Date Time Temp Pulse Resp B/P (MAP) Pulse Ox O2 Delivery O2 Flow Rate FiO2 04/17/17 11:07 Room Air 04/17/17 11:00 97.9 89 20 114/52 (72) 94 97.9 LABS Lab: Laboratory Tests Test 04/16/17 22:05 04/17/17 03:45 04/17/17 04:00 Troponin I Quantitative 0.103 ng/mL (0.000-0.055) Sodium Level 141 mmol/L (136-145) Potassium Level 3.7 mmol/L (3.5-5.1) Chloride Level 107 mmol/L (98-107) Carbon Dioxide Level 23 mmol/L (21-32) Anion Gap 11 (6-14) Blood Urea Nitrogen 17 mg/dL (7-20) Creatinine 1.3 mg/dL (0.6-1.0) Estimated GFR (Cockcroft-Gault) 38.6 Glucose Level 146 mg/dL (70-99) Calcium Level 8.2 mg/dL (8.5-10.1) White Blood Count 6.0 x10^3/uL (4.0-11.0) Red Blood Count 3.40 x10^6/uL (3.50-5.40) Hemoglobin 10.5 g/dL (12.0-15.5) Hematocrit 30.9 % (36.0-47.0) Mean Corpuscular Volume 91 fL (79-100) Mean Corpuscular Hemoglobin 31 pg (25-35) Mean Corpuscular Hemoglobin Concent 34 g/dL (31-37) Red Cell Distribution Width 14.8 % (11.5-14.5) Platelet Count 109 x10^3/uL (140-400) Neutrophils (%) (Auto) 57 % (31-73) Lymphocytes (%) (Auto) 24 % (24-48) Monocytes (%) (Auto) 14 % (0-9) Eosinophils (%) (Auto) 5 % (0-3) Basophils (%) (Auto) 1 % (0-3) Neutrophils # (Auto) 3.4 x10^3uL (1.8-7.7) Lymphocytes # (Auto) 1.4 x10^3/uL (1.0-4.8) Monocytes # (Auto) 0.8 x10^3/uL (0.0-1.1) Eosinophils # (Auto) 0.3 x10^3/uL (0.0-0.7) Basophils # (Auto) 0.0 x10^3/uL (0.0-0.2) ASSESSMENT/PLAN ASSESSMENT/PLAN 1. Elevated troponin; peak 0.104 2. S/p recent TAVR 04/11/17 2. Mild acute on chronic CHF 3. Dyspnea with ? PNA 4. Hypertension 5. Hyperlipidemia 6. Diabetes 7. CKD Recommendations Mild diuresis with monitoring of renal function Continue optimization therapy Recent cardiac workup at [facility] prior to TAVR; will obtain cardiac records. Continue IV antibiotic therapy per pul/IM. Problems: EVIE DARDEN MD 04/17/17 1552: CARDIAC CONSULT ALLERGIES ALLERGIES: Coded Allergies: meperidine (Verified Allergy, Intermediate, 04/15/17) morphine (Verified Allergy, Intermediate, 04/15/17) ASSESSMENT/PLAN ASSESSMENT/PLAN Patient seen and examined. Agree with SAFETY ADVISOR's assessment and plan. Continue gentle diuresis for acute on chronic diastolic heart failure. Troponin level slightly elevated but EKG without acute changes. We will obtain records pertaining to recent TAVR from [facility] Continue intravenous antibiotics per pulmonary team Thank you for your consultation Problems: JULIANNA SEIGEL APRN Apr 17, 2017 13:06 EVIE DARDEN MD Apr 17, 2017 15:52
--- NOTE | 2017-04-17 13:46 | PDOC ---
PROGRESS NOTES Chief Complaint Chief Complaint 1. Cough, weakness and fever, suspected healthcare-associated pneumonia vs. CHF exacerbatino 2. Mild elevation of troponin, recent transcatheter aortic valve replacement. 3. Type 2 diabetes mellitus. 4. Hypertension. 5. Hyperlipidemia. 6. Obesity, BMI 39. plan: fu with pulm, card check BNP labs tmr cont current abx check sputum cx dvt ppx History of Present Illness History of Present Illness cough slightly better Vitals Vitals Vital Signs Date Time Temp Pulse Resp B/P (MAP) Pulse Ox O2 Delivery O2 Flow Rate FiO2 04/17/17 11:07 Room Air 04/17/17 11:00 97.9 89 20 114/52 (72) 94 97.9 Physical Exam General: Alert, Oriented X3, Cooperative Heart: Regular rate, Normal S1, Normal S2 Lungs: Clear Abdomen: Normal bowel sounds, Soft Extremities: No clubbing, No cyanosis Skin: No rashes Labs LABS Laboratory Tests Test 04/16/17 22:05 04/17/17 03:45 04/17/17 04:00 Troponin I Quantitative 0.103 ng/mL (0.000-0.055) Sodium Level 141 mmol/L (136-145) Potassium Level 3.7 mmol/L (3.5-5.1) Chloride Level 107 mmol/L (98-107) Carbon Dioxide Level 23 mmol/L (21-32) Anion Gap 11 (6-14) Blood Urea Nitrogen 17 mg/dL (7-20) Creatinine 1.3 mg/dL (0.6-1.0) Estimated GFR (Cockcroft-Gault) 38.6 Glucose Level 146 mg/dL (70-99) Calcium Level 8.2 mg/dL (8.5-10.1) White Blood Count 6.0 x10^3/uL (4.0-11.0) Red Blood Count 3.40 x10^6/uL (3.50-5.40) Hemoglobin 10.5 g/dL (12.0-15.5) Hematocrit 30.9 % (36.0-47.0) Mean Corpuscular Volume 91 fL (79-100) Mean Corpuscular Hemoglobin 31 pg (25-35) Mean Corpuscular Hemoglobin Concent 34 g/dL (31-37) Red Cell Distribution Width 14.8 % (11.5-14.5) Platelet Count 109 x10^3/uL (140-400) Neutrophils (%) (Auto) 57 % (31-73) Lymphocytes (%) (Auto) 24 % (24-48) Monocytes (%) (Auto) 14 % (0-9) Eosinophils (%) (Auto) 5 % (0-3) Basophils (%) (Auto) 1 % (0-3) Neutrophils # (Auto) 3.4 x10^3uL (1.8-7.7) Lymphocytes # (Auto) 1.4 x10^3/uL (1.0-4.8) Monocytes # (Auto) 0.8 x10^3/uL (0.0-1.1) Eosinophils # (Auto) 0.3 x10^3/uL (0.0-0.7) Basophils # (Auto) 0.0 x10^3/uL (0.0-0.2) Review of Systems Review of Systems no fever, chills, sob or chest pain Assessment and Plan Assessmemt and Plan Problems Medical Problems: (1) Elevated troponin Status: Acute Problems: Comment Review of Relevant I have reviewed the following items shani (where applicable) has been applied. Labs Laboratory Tests Test 04/15/17 21:10 04/15/17 21:34 04/16/17 07:27 04/16/17 12:40 White Blood Count 6.5 x10^3/uL (4.0-11.0) Red Blood Count 3.46 x10^6/uL (3.50-5.40) Hemoglobin 11.0 g/dL (12.0-15.5) Hematocrit 30.9 % (36.0-47.0) Mean Corpuscular Volume 89 fL (79-100) Mean Corpuscular Hemoglobin 32 pg (25-35) Mean Corpuscular Hemoglobin Concent 36 g/dL (31-37) Red Cell Distribution Width 14.7 % (11.5-14.5) Platelet Count 109 x10^3/uL (140-400) Neutrophils (%) (Auto) 63 % (31-73) Lymphocytes (%) (Auto) 20 % (24-48) Monocytes (%) (Auto) 14 % (0-9) Eosinophils (%) (Auto) 3 % (0-3) Basophils (%) (Auto) 1 % (0-3) Neutrophils # (Auto) 4.1 x10^3uL (1.8-7.7) Lymphocytes # (Auto) 1.3 x10^3/uL (1.0-4.8) Monocytes # (Auto) 0.9 x10^3/uL (0.0-1.1) Eosinophils # (Auto) 0.2 x10^3/uL (0.0-0.7) Basophils # (Auto) 0.0 x10^3/uL (0.0-0.2) Sodium Level 139 mmol/L (136-145) Potassium Level 4.0 mmol/L (3.5-5.1) Chloride Level 105 mmol/L (98-107) Carbon Dioxide Level 23 mmol/L (21-32) Anion Gap 11 (6-14) Blood Urea Nitrogen 17 mg/dL (7-20) Creatinine 1.1 mg/dL (0.6-1.0) Estimated GFR (Cockcroft-Gault) 46.8 BUN/Creatinine Ratio 15 (6-20) Glucose Level 159 mg/dL (70-99) Lactic Acid Level 1.2 mmol/L (0.4-2.0) Calcium Level 8.6 mg/dL (8.5-10.1) Total Bilirubin 0.6 mg/dL (0.2-1.0) Aspartate Amino Transf (AST/SGOT) 27 U/L (15-37) Alanine Aminotransferase (ALT/SGPT) 31 U/L (14-59) Alkaline Phosphatase 102 U/L (46-116) Troponin I Quantitative 0.096 ng/mL (0.000-0.055) 0.104 ng/mL (0.000-0.055) Total Protein 6.5 g/dL (6.4-8.2) Albumin 3.0 g/dL (3.4-5.0) Albumin/Globulin Ratio 0.9 (1.0-1.7) Lipase 163 U/L (73-393) Urine Collection Type Unknown Urine Color Yellow Urine Clarity Clear Urine pH 6.0 Urine Specific Reliance 1.010 Urine Protein Negative mg/dL (NEG-TRACE) Urine Glucose (UA) Negative mg/dL (NEG) Urine Ketones (Stick) Negative mg/dL (NEG) Urine Blood Negative (NEG) Urine Nitrite Negative (NEG) Urine Bilirubin Negative (NEG) Urine Urobilinogen Dipstick 0.2 mg/dL (0.2 mg/dL) Urine Leukocyte Esterase Negative (NEG) Urine RBC 0 /HPF (0-2) Urine WBC Occ /HPF (0-4) Urine Squamous Epithelial Cells Few /LPF Urine Bacteria 0 /HPF (0-FEW) Glucose (Fingerstick) 49 mg/dL (70-99) Test 04/16/17 22:05 04/17/17 03:45 04/17/17 04:00 Troponin I Quantitative 0.103 ng/mL (0.000-0.055) Sodium Level 141 mmol/L (136-145) Potassium Level 3.7 mmol/L (3.5-5.1) Chloride Level 107 mmol/L (98-107) Carbon Dioxide Level 23 mmol/L (21-32) Anion Gap 11 (6-14) Blood Urea Nitrogen 17 mg/dL (7-20) Creatinine 1.3 mg/dL (0.6-1.0) Estimated GFR (Cockcroft-Gault) 38.6 Glucose Level 146 mg/dL (70-99) Calcium Level 8.2 mg/dL (8.5-10.1) White Blood Count 6.0 x10^3/uL (4.0-11.0) Red Blood Count 3.40 x10^6/uL (3.50-5.40) Hemoglobin 10.5 g/dL (12.0-15.5) Hematocrit 30.9 % (36.0-47.0) Mean Corpuscular Volume 91 fL (79-100) Mean Corpuscular Hemoglobin 31 pg (25-35) Mean Corpuscular Hemoglobin Concent 34 g/dL (31-37) Red Cell Distribution Width 14.8 % (11.5-14.5) Platelet Count 109 x10^3/uL (140-400) Neutrophils (%) (Auto) 57 % (31-73) Lymphocytes (%) (Auto) 24 % (24-48) Monocytes (%) (Auto) 14 % (0-9) Eosinophils (%) (Auto) 5 % (0-3) Basophils (%) (Auto) 1 % (0-3) Neutrophils # (Auto) 3.4 x10^3uL (1.8-7.7) Lymphocytes # (Auto) 1.4 x10^3/uL (1.0-4.8) Monocytes # (Auto) 0.8 x10^3/uL (0.0-1.1) Eosinophils # (Auto) 0.3 x10^3/uL (0.0-0.7) Basophils # (Auto) 0.0 x10^3/uL (0.0-0.2) Laboratory Tests Test 04/16/17 22:05 04/17/17 03:45 04/17/17 04:00 Troponin I Quantitative 0.103 ng/mL (0.000-0.055) Sodium Level 141 mmol/L (136-145) Potassium Level 3.7 mmol/L (3.5-5.1) Chloride Level 107 mmol/L (98-107) Carbon Dioxide Level 23 mmol/L (21-32) Anion Gap 11 (6-14) Blood Urea Nitrogen 17 mg/dL (7-20) Creatinine 1.3 mg/dL (0.6-1.0) Estimated GFR (Cockcroft-Gault) 38.6 Glucose Level 146 mg/dL (70-99) Calcium Level 8.2 mg/dL (8.5-10.1) White Blood Count 6.0 x10^3/uL (4.0-11.0) Red Blood Count 3.40 x10^6/uL (3.50-5.40) Hemoglobin 10.5 g/dL (12.0-15.5) Hematocrit 30.9 % (36.0-47.0) Mean Corpuscular Volume 91 fL (79-100) Mean Corpuscular Hemoglobin 31 pg (25-35) Mean Corpuscular Hemoglobin Concent 34 g/dL (31-37) Red Cell Distribution Width 14.8 % (11.5-14.5) Platelet Count 109 x10^3/uL (140-400) Neutrophils (%) (Auto) 57 % (31-73) Lymphocytes (%) (Auto) 24 % (24-48) Monocytes (%) (Auto) 14 % (0-9) Eosinophils (%) (Auto) 5 % (0-3) Basophils (%) (Auto) 1 % (0-3) Neutrophils # (Auto) 3.4 x10^3uL (1.8-7.7) Lymphocytes # (Auto) 1.4 x10^3/uL (1.0-4.8) Monocytes # (Auto) 0.8 x10^3/uL (0.0-1.1) Eosinophils # (Auto) 0.3 x10^3/uL (0.0-0.7) Basophils # (Auto) 0.0 x10^3/uL (0.0-0.2) Microbiology 04/15/17 Blood Culture - Preliminary, Resulted NO GROWTH AFTER 1 DAY Medications Current Medications Iohexol (Omnipaque 300 Mg/ml) 60 ml 1X ONCE IV ; Start 04/15/17 at 23:00; Stop 04/15/17 at 23:01; Status DC Info (Do NOT chart on this entry -- for MONITORING) 1 each PRN DAILY PRN MC SEE COMMENTS; Start 04/15/17 at 22:30; Stop 04/17/17 at 22:29 Ceftriaxone Sodium 50 ml @ 100 mls/hr 1X ONCE IV ; Start 04/16/17 at 00:30; Stop 04/16/17 at 00:30; Status DC Azithromycin 250 ml @ 250 mls/hr 1X ONCE IV ; Start 04/16/17 at 01:00; Stop at 01:00; Status DC Levofloxacin/ Dextrose 150 ml @ 100 mls/hr 1X ONCE IV Last administered on 00:54; Start 04/16/17 at 01:00; Stop 04/16/17 at 02:29; Status DC Vancomycin HCl 1.25 gm/Sodium Chloride 500 ml @ 250 mls/hr 1X STAT IV ; Start 04/16/17 at 00:18; Stop 04/16/17 at 02:17; Status UNV Piperacillin Sod/ Tazobactam Sod 4.5 gm/Sodium Chloride 100 ml @ 200 mls/hr 1X ONCE IV Last administered on 04/16/17 00:51; Start 04/16/17 at 01:00; Stop 04/16/17 at 01:29; Status DC Ondansetron HCl (Zofran) 4 mg PRN Q8HRS PRN IV NAUSEA/VOMITING; Start 04/16/17 at 00:30; Stop 04/17/17 at 00:29; Status DC Morphine Sulfate 2 mg PRN Q2HR PRN IV PAIN; Start 04/16/17 at 00:30; Stop 04/17 at 00:29; Status UNV Vancomycin HCl (Vanco Per Pharmacy) 1 each PRN DAILY PRN MC SEE COMMENTS Last administered on 04/16/17 11:41; Start 04/16/17 at 00:30 Vancomycin HCl 2 gm/Sodium Chloride 500 ml @ 250 mls/hr 1X ONCE IV Last administered on 04/16/17 01:44; Start 04/16/17 at 01:30; Stop 04/16/17 at 03:29 ; Status DC Throat Lozenges (Cepacol Sore Throat Lozenge) 1 jim PRN Q2HRS PRN PO SORE THROAT Last administered on 04/16/17 02:31; Start 04/16/17 at 02:30 Vancomycin HCl 1.5 gm/Sodium Chloride 500 ml @ 250 mls/hr Q24H IV Last administered on 04/17/17 02:04; Start 04/17/17 at 02:00 Vancomycin HCl 1 each 1X ONCE MC ; Start 04/18/17 at 01:30; Stop 04/18/17 at 01 :31 Albuterol/ Ipratropium (Duoneb) 3 ml RTQID NEB Last administered on 04/17/17 11:06; Start 04/16/17 at 10:00 Piperacillin Sod/ Tazobactam Sod 3.375 gm/Sodium Chloride 50 ml @ 100 mls/hr Q6HRS IV Last administered on 04/17/17 12:32; Start 04/16/17 at 12:00 Vancomycin HCl (Vanco Per Pharmacy) 1 each PRN DAILY PRN MC SEE COMMENTS; Start 04/16/17 at 11:15; Status UNV Levofloxacin/ Dextrose (Levaquin Per Pharmacy) 1 each PRN DAILY PRN MC SEE COMMENTS; Start 04/16/17 at 11:15 Acetaminophen (Tylenol) 325 mg PRN Q6HRS PRN PO MILD PAIN / TEMP; Start at 11:15 Hydralazine HCl (Apresoline) 10 mg PRN Q4HRS PRN IVP ELEVATED BP, SEE COMMENTS ; Start 04/16/17 at 11:15 Ondansetron HCl (Zofran) 4 mg PRN Q8HRS PRN IV NAUSEA/VOMITING; Start 04/16/17 at 11:15 Albuterol Sulfate (Ventolin Neb Soln) 2.5 mg PRN Q4HRS PRN NEB SHORTNESS OF BREATH; Start 04/16/17 at 11:15 Allopurinol (Zyloprim) 300 mg DAILY PO Last administered on 04/17/17 08:31; Start 04/16/17 at 11:30 Amlodipine Besylate (Norvasc) 10 mg DAILY PO Last administered on 04/17/17 08: 32; Start 04/16/17 at 11:30 Aspirin (Children'S Aspirin) 81 mg DAILY PO Last administered on 04/17/17 08: 28; Start 04/16/17 at 11:30 Carvedilol (Coreg) 6.25 mg BIDWMEALS PO Last administered on 04/17/17 08:30; Start 04/16/17 at 11:30 Clopidogrel Bisulfate (Plavix) 75 mg DAILY PO Last administered on 04/17/17 08 :31; Start 04/16/17 at 11:30 Docusate Sodium (Colace) 100 mg DAILY PO Last administered on 04/17/17 09:00; Start 04/16/17 at 11:30 Folic Acid (Folic Acid) 0.4 mg DAILY PO Last administered on 04/17/17 08:31; Start 04/16/17 at 11:30 Furosemide (Lasix) 20 mg DAILY PO Last administered on 04/17/17 08:31; Start 04/16/17 at 11:30 Linagliptin (Tradjenta) 5 mg DAILY PO Last administered on 04/17/17 08:31; Start 04/16/17 at 11:30 Lisinopril (Prinivil) 40 mg DAILY PO Last administered on 04/17/17 08:33; Start 04/16/17 at 11:30 Tramadol HCl (Ultram) 50 mg PRN Q6HRS PRN PO PAIN; Start 04/16/17 at 11:15 Atorvastatin Calcium (Lipitor) 80 mg QHS PO Last administered on 04/16/17 21: 18; Start 04/16/17 at 21:00 Gabapentin (Neurontin) 300 mg BID PO Last administered on 04/17/17 08:32; Start 04/16/17 at 11:30 Glyburide (Diabeta) 1.25 mg DAILYWBKFT PO Last administered on 04/17/17 08:31 ; Start 04/16/17 at 11:30 Multivitamins (Thera M Plus) 1 tab DAILY PO Last administered on 04/17/17 08: 32; Start 04/16/17 at 11:30 Potassium Chloride (Klor-Con) 10 meq DAILYWBKFT PO Last administered on 08:32; Start 04/16/17 at 11:30 Furosemide (Lasix) 20 mg 1X ONCE IVP Last administered on 04/16/17 12:24; Start 04/16/17 at 11:15; Stop 04/16/17 at 11:18; Status DC Enoxaparin Sodium (Lovenox 40mg Syringe) 40 mg Q24H SQ Last administered on 08:28; Start 04/16/17 at 11:30 Levofloxacin/ Dextrose 150 ml @ 100 mls/hr Q48H IV ; Start 04/18/17 at 02:00 Temazepam (Restoril) 7.5 mg PRN QHS PRN PO INSOMNIA; Start 04/16/17 at 19:45; Status UNV Temazepam (Restoril) 7.5 mg PRN QHS PRN PO INSOMNIA Last administered on 21:20; Start 04/16/17 at 20:00 Active Scripts Active Reported Tramadol Hcl 50 Mg Tablet 50 Mg PO Q6H PRN Aspirin 81 Mg Tab.chew 81 Mg PO DAILY Plavix (Clopidogrel Bisulfate) 75 Mg Tablet 75 Mg PO DAILY Tradjenta (Linagliptin) 5 Mg Tablet 5 Mg PO DAILY Norvasc (Amlodipine Besylate) 10 Mg Tablet 10 Mg PO DAILY Gabapentin 300 Mg Capsule 300 Mg PO BID Furosemide 20 Mg Tablet 20 Mg PO DAILY Allopurinol 300 Mg Tablet 300 Mg PO DAILY Glyburide 2.5 Mg Tablet 1.25 Mg PO DAILY Metformin Hcl 500 Mg Tablet 500 Mg PO BIDWMEALS Docusate Sodium 100 Mg Capsule 100 Mg PO DAILY One-A-Day Essential (Multivitamin) 1 Each Tablet 1 Each PO DAILY Folic Acid 1 Mg Tablet 0.4 Mg PO DAILY Atorvastatin Calcium 80 Mg Tablet 80 Mg PO HS Prinivil (Lisinopril) 20 Mg Tablet 40 Mg PO DAILY Potassium Chloride 10 Meq Capsule.er 10 Meq PO DAILY Carvedilol 6.25 Mg Tablet 6.25 Mg PO BIDWMEALS Vitals/I & O Vital Sign - Last 24 Hours 04/16/17 04/16/17 04/16/17 04/16/17 15:00 15:50 17:04 19:00 Temp 98.0 98.2 98.0 98.2 Pulse 95 95 91 Resp 18 18 B/P (MAP) 125/56 (79) 125/56 110/33 (58) Pulse Ox 92 96 O2 Delivery Room Air Room Air Room Air 04/16/17 04/16/17 04/16/17 04/17/17 20:00 20:24 23:00 03:18 Temp 98.1 97.9 98.1 97.9 Pulse 88 83 Resp 18 18 B/P (MAP) 114/56 (75) 112/48 (69) Pulse Ox 98 94 93 O2 Delivery Room Air Room Air Room Air Room Air 04/17/17 04/17/17 04/17/17 04/17/17 07:00 07:40 08:00 08:30 Temp 98.3 98.3 Pulse 92 92 Resp 20 B/P (MAP) 138/51 (80) 138/51 Pulse Ox 96 97 O2 Delivery Room Air Room Air Room Air 04/17/17 04/17/17 04/17/17 04/17/17 08:32 08:33 11:00 11:07 Temp 97.9 97.9 Pulse 92 92 89 Resp 20 B/P (MAP) 138/51 138/51 114/52 (72) Pulse Ox 94 O2 Delivery Room Air Room Air Intake and Output 04/16/17 04/16/17 04/17/17 14:59 22:59 06:59 Intake Total 60 ml 740 ml 750 ml Balance 60 ml 740 ml 750 ml HERNANDEZ GAMBLE MD Apr 17, 2017 13:46
--- NOTE | 2017-04-17 13:56 | PDOC ---
PULMONARY PROGRESS NOTES Subjective PT FEELS BETTER LESS SOA Vitals Vital Signs Date Time Temp Pulse Resp B/P (MAP) Pulse Ox O2 Delivery O2 Flow Rate FiO2 04/17/17 11:07 Room Air 04/17/17 11:00 97.9 89 20 114/52 (72) 94 97.9 ROS: No Nausea, No Chest Pain, No Abdominal Pain, No Increase Cough General: Alert Lungs: Clear Cardiovascular: S1, S2 Abdomen: Soft Neuro Exam: Alert Extremities: No Edema Skin: Warm Labs Laboratory Tests Test 04/15/17 21:10 04/15/17 21:34 04/16/17 07:27 04/16/17 12:40 White Blood Count 6.5 x10^3/uL (4.0-11.0) Red Blood Count 3.46 x10^6/uL (3.50-5.40) Hemoglobin 11.0 g/dL (12.0-15.5) Hematocrit 30.9 % (36.0-47.0) Mean Corpuscular Volume 89 fL (79-100) Mean Corpuscular Hemoglobin 32 pg (25-35) Mean Corpuscular Hemoglobin Concent 36 g/dL (31-37) Red Cell Distribution Width 14.7 % (11.5-14.5) Platelet Count 109 x10^3/uL (140-400) Neutrophils (%) (Auto) 63 % (31-73) Lymphocytes (%) (Auto) 20 % (24-48) Monocytes (%) (Auto) 14 % (0-9) Eosinophils (%) (Auto) 3 % (0-3) Basophils (%) (Auto) 1 % (0-3) Neutrophils # (Auto) 4.1 x10^3uL (1.8-7.7) Lymphocytes # (Auto) 1.3 x10^3/uL (1.0-4.8) Monocytes # (Auto) 0.9 x10^3/uL (0.0-1.1) Eosinophils # (Auto) 0.2 x10^3/uL (0.0-0.7) Basophils # (Auto) 0.0 x10^3/uL (0.0-0.2) Sodium Level 139 mmol/L (136-145) Potassium Level 4.0 mmol/L (3.5-5.1) Chloride Level 105 mmol/L (98-107) Carbon Dioxide Level 23 mmol/L (21-32) Anion Gap 11 (6-14) Blood Urea Nitrogen 17 mg/dL (7-20) Creatinine 1.1 mg/dL (0.6-1.0) Estimated GFR (Cockcroft-Gault) 46.8 BUN/Creatinine Ratio 15 (6-20) Glucose Level 159 mg/dL (70-99) Lactic Acid Level 1.2 mmol/L (0.4-2.0) Calcium Level 8.6 mg/dL (8.5-10.1) Total Bilirubin 0.6 mg/dL (0.2-1.0) Aspartate Amino Transf (AST/SGOT) 27 U/L (15-37) Alanine Aminotransferase (ALT/SGPT) 31 U/L (14-59) Alkaline Phosphatase 102 U/L (46-116) Troponin I Quantitative 0.096 ng/mL (0.000-0.055) 0.104 ng/mL (0.000-0.055) Total Protein 6.5 g/dL (6.4-8.2) Albumin 3.0 g/dL (3.4-5.0) Albumin/Globulin Ratio 0.9 (1.0-1.7) Lipase 163 U/L (73-393) Urine Collection Type Unknown Urine Color Yellow Urine Clarity Clear Urine pH 6.0 Urine Specific [place] 1.010 Urine Protein Negative mg/dL (NEG-TRACE) Urine Glucose (UA) Negative mg/dL (NEG) Urine Ketones (Stick) Negative mg/dL (NEG) Urine Blood Negative (NEG) Urine Nitrite Negative (NEG) Urine Bilirubin Negative (NEG) Urine Urobilinogen Dipstick 0.2 mg/dL (0.2 mg/dL) Urine Leukocyte Esterase Negative (NEG) Urine RBC 0 /HPF (0-2) Urine WBC Occ /HPF (0-4) Urine Squamous Epithelial Cells Few /LPF Urine Bacteria 0 /HPF (0-FEW) Glucose (Fingerstick) 49 mg/dL (70-99) Test 04/16/17 22:05 04/17/17 03:45 04/17/17 04:00 Troponin I Quantitative 0.103 ng/mL (0.000-0.055) Sodium Level 141 mmol/L (136-145) Potassium Level 3.7 mmol/L (3.5-5.1) Chloride Level 107 mmol/L (98-107) Carbon Dioxide Level 23 mmol/L (21-32) Anion Gap 11 (6-14) Blood Urea Nitrogen 17 mg/dL (7-20) Creatinine 1.3 mg/dL (0.6-1.0) Estimated GFR (Cockcroft-Gault) 38.6 Glucose Level 146 mg/dL (70-99) Calcium Level 8.2 mg/dL (8.5-10.1) White Blood Count 6.0 x10^3/uL (4.0-11.0) Red Blood Count 3.40 x10^6/uL (3.50-5.40) Hemoglobin 10.5 g/dL (12.0-15.5) Hematocrit 30.9 % (36.0-47.0) Mean Corpuscular Volume 91 fL (79-100) Mean Corpuscular Hemoglobin 31 pg (25-35) Mean Corpuscular Hemoglobin Concent 34 g/dL (31-37) Red Cell Distribution Width 14.8 % (11.5-14.5) Platelet Count 109 x10^3/uL (140-400) Neutrophils (%) (Auto) 57 % (31-73) Lymphocytes (%) (Auto) 24 % (24-48) Monocytes (%) (Auto) 14 % (0-9) Eosinophils (%) (Auto) 5 % (0-3) Basophils (%) (Auto) 1 % (0-3) Neutrophils # (Auto) 3.4 x10^3uL (1.8-7.7) Lymphocytes # (Auto) 1.4 x10^3/uL (1.0-4.8) Monocytes # (Auto) 0.8 x10^3/uL (0.0-1.1) Eosinophils # (Auto) 0.3 x10^3/uL (0.0-0.7) Basophils # (Auto) 0.0 x10^3/uL (0.0-0.2) Laboratory Tests Test 04/16/17 22:05 04/17/17 03:45 04/17/17 04:00 Troponin I Quantitative 0.103 ng/mL (0.000-0.055) Sodium Level 141 mmol/L (136-145) Potassium Level 3.7 mmol/L (3.5-5.1) Chloride Level 107 mmol/L (98-107) Carbon Dioxide Level 23 mmol/L (21-32) Anion Gap 11 (6-14) Blood Urea Nitrogen 17 mg/dL (7-20) Creatinine 1.3 mg/dL (0.6-1.0) Estimated GFR (Cockcroft-Gault) 38.6 Glucose Level 146 mg/dL (70-99) Calcium Level 8.2 mg/dL (8.5-10.1) White Blood Count 6.0 x10^3/uL (4.0-11.0) Red Blood Count 3.40 x10^6/uL (3.50-5.40) Hemoglobin 10.5 g/dL (12.0-15.5) Hematocrit 30.9 % (36.0-47.0) Mean Corpuscular Volume 91 fL (79-100) Mean Corpuscular Hemoglobin 31 pg (25-35) Mean Corpuscular Hemoglobin Concent 34 g/dL (31-37) Red Cell Distribution Width 14.8 % (11.5-14.5) Platelet Count 109 x10^3/uL (140-400) Neutrophils (%) (Auto) 57 % (31-73) Lymphocytes (%) (Auto) 24 % (24-48) Monocytes (%) (Auto) 14 % (0-9) Eosinophils (%) (Auto) 5 % (0-3) Basophils (%) (Auto) 1 % (0-3) Neutrophils # (Auto) 3.4 x10^3uL (1.8-7.7) Lymphocytes # (Auto) 1.4 x10^3/uL (1.0-4.8) Monocytes # (Auto) 0.8 x10^3/uL (0.0-1.1) Eosinophils # (Auto) 0.3 x10^3/uL (0.0-0.7) Basophils # (Auto) 0.0 x10^3/uL (0.0-0.2) Medications Active Scripts Medications Dose Route/Sig Max Daily Dose Days Date Category Tramadol Hcl 50 Mg Tablet 50 Mg PO Q6H PRN 04/16/17 Reported Aspirin 81 Mg Tab.chew 81 Mg PO DAILY 04/16/17 Reported Plavix (Clopidogrel Bisulfate) 75 Mg Tablet 75 Mg PO DAILY 04/16/17 Reported Tradjenta (Linagliptin) 5 Mg Tablet 5 Mg PO DAILY 04/16/17 Reported Norvasc (Amlodipine Besylate) 10 Mg Tablet 10 Mg PO DAILY 04/16/17 Reported Gabapentin 300 Mg Capsule 300 Mg PO BID 04/16/17 Reported Furosemide 20 Mg Tablet 20 Mg PO DAILY 04/16/17 Reported Allopurinol 300 Mg Tablet 300 Mg PO DAILY 04/16/17 Reported Glyburide 2.5 Mg Tablet 1.25 Mg PO DAILY 04/16/17 Reported Metformin Hcl 500 Mg Tablet 500 Mg PO BIDWMEALS 04/16/17 Reported Docusate Sodium 100 Mg Capsule 100 Mg PO DAILY 04/16/17 Reported One-A-Day Essential (Multivitamin) 1 Each Tablet 1 Each PO DAILY 04/16/17 Reported Folic Acid 1 Mg Tablet 0.4 Mg PO DAILY 04/16/17 Reported Atorvastatin Calcium 80 Mg Tablet 80 Mg PO HS 04/16/17 Reported Prinivil (Lisinopril) 20 Mg Tablet 40 Mg PO DAILY 04/16/17 Reported Potassium Chloride 10 Meq Capsule.er 10 Meq PO DAILY 04/16/17 Reported Carvedilol 6.25 Mg Tablet 6.25 Mg PO BIDWMEALS 04/16/17 Reported Impression . 1. Acute resp failure sec to acute chf and pneuma 2. Abnormal chest x-ray. 3. Pulmonary infiltrate 4. Status post heart valve replacement. 5. Hypertension. 6. Diabetes mellitus. 7. Hypercholesterolemia. 1. No evidence of pulmonary embolism. 2. Coronary artery calcifications. 3. Diffuse groundglass airspace opacities identified in the bilateral lungs could be pulmonary edema or infiltrates. Patchy right upper lobe, bibasilar lung airspace opacities likely pneumonia or atelectasis. 4. 2.4 cm hyperdensity identified in the right kidney could be hyperdense cyst or mass. Recommend follow-up nonemergent ultrasound kidneys. Electronically signed by: Manuelito Titus MD (04/15/2017 11:33 PM) Plan . ECHO pendijmg 1. Titrate FiO2 to keep O2 saturation 92%. 2. Start bronchodilator. 3. Deescalate antibx RADHA REYNOSO MD Apr 17, 2017 13:56
[2017-04-17 15:00] VITALS: BP 107/53
[2017-04-17] MEDS ORDERED: FUROSEMIDE 40 MG TABLET. PO ONE (15:30)
[2017-04-17 19:44] VITALS: BP 116/68
[2017-04-17] MEDS: TEMAZEPAM 7.5 MG CAPSULE PO PRN (21:33)
[2017-04-17] MEDS: ATORVASTATIN CALCIUM 40 MG TABLET. PO SCH (21:34)
[2017-04-17 23:48] VITALS: BP 104/43
[2017-04-18] MEDS: PIPERACILLIN/TAZOBACTAM 3.375 GM in IV NORMAL SALINE 50ML 50 ML IV SCH ×5 (00:19→23:01)
[2017-04-18 02:47] LABS: CALCIUM 8.1 mg/dL (8.5-10.1); CREATININE 1.4 mg/dL (0.6-1.0); GFR 35.4; POTASSIUM 4.2 mmol/L (3.5-5.1)
[2017-04-18] MEDS: VANCOMYCIN 1.5 GM in IV NORMAL SALINE 500ML BAG 500 ML IV SCH (02:57)
[2017-04-18] MEDS: VANCOMYCIN PER PHARMACY MC PRN ×3 (03:02→12:38)
[2017-04-18 03:24] VITALS: BP 106/40
[2017-04-18 03:32] LABS: BASO # 0.1 x10^3/uL (0.0-0.2); BASO % 1 % (0-3); EOS % 7 % (0-3); HEMATOCRIT 33.5 % (36.0-47.0); HEMOGLOBIN 11.2 g/dL (12.0-15.5); LYMPH # 1.7 x10^3/uL (1.0-4.8); LYMPH % 23 % (24-48); MEAN CORPUSCULAR HEMOGLOBIN 31 pg (25-35); MEAN CORPUSCULAR HGB CONC 34 g/dL (31-37); MEAN CORPUSCULAR VOLUME 92 fL (79-100); MONO % 12 % (0-9); NEUT % 58 % (31-73); PLATELET COUNT 128 x10^3/uL (140-400); RED BLOOD COUNT 3.63 x10^6/uL (3.50-5.40); RED CELL DISTRIBUTION WIDTH 14.8 % (11.5-14.5); WHITE BLOOD COUNT 7.3 x10^3/uL (4.0-11.0)
[2017-04-18 07:00] VITALS: BP 118/52
[2017-04-18] MEDS: IPRATRPIUM/ALBUTEROL 0.5/2.5MG 3 ML NEBU. NEB SCH ×4 (07:36→20:58)
[2017-04-18] MEDS: glyBURIDE 1.25 MG TABLET PO SCH (09:01)
[2017-04-18] MEDS: DOCUSATE SODIUM 100 MG CAPSULE. PO SCH (09:02)
[2017-04-18] MEDS: CARVEDILOL 6.25 MG TABLET. PO SCH ×2 (09:02→17:00)
[2017-04-18] MEDS: FUROSEMIDE 20 MG TABLET PO SCH (09:02)
[2017-04-18] MEDS: POTASSIUM CHLORIDE 10 MEQ TABLET.ER. PO SCH (09:03)
[2017-04-18] MEDS: ASPIRIN CHEWABLE 81 MG TABLET. PO SCH (09:03)
[2017-04-18] MEDS: LINAGLIPTIN 5 MG TABLET PO SCH (09:03)
[2017-04-18] MEDS: GABAPENTIN 300 MG CAPSULE. PO SCH ×2 (09:03→20:32)
[2017-04-18] MEDS: MULTIVITAMIN with MINERAL TABLET. PO SCH (09:03)
[2017-04-18] MEDS: LISINOPRIL 40 MG TABLET. PO SCH (09:03)
[2017-04-18] MEDS: CLOPIDOGREL BISULFATE 75 MG TABLET PO SCH (09:03)
[2017-04-18] MEDS: ALLOPURINOL 300 MG TABLET. PO SCH (09:03)
[2017-04-18] MEDS: FOLIC ACID 1 MG TABLET. PO SCH (09:04)
[2017-04-18] MEDS: amLODIPine BESYLATE 10 MG TABLET PO SCH (09:07)
--- NOTE | 2017-04-18 10:01 | PDOC ---
PULMONARY PROGRESS NOTES Subjective PT FEELS BETTER LESS SOA Vitals Vital Signs Date Time Temp Pulse Resp B/P (MAP) Pulse Ox O2 Delivery O2 Flow Rate FiO2 04/18/17 09:07 93 118/52 04/18/17 07:37 90 Room Air 04/18/17 07:00 97.5 16 97.5 ROS: No Nausea, No Chest Pain, No Abdominal Pain, No Increase Cough General: Alert Lungs: Clear Cardiovascular: S1, S2 Abdomen: Soft Neuro Exam: Alert Extremities: No Edema Skin: Warm Labs Laboratory Tests Test 04/16/17 12:40 04/16/17 22:05 04/17/17 03:45 04/17/17 04:00 Troponin I Quantitative 0.104 ng/mL (0.000-0.055) 0.103 ng/mL (0.000-0.055) Sodium Level 141 mmol/L (136-145) Potassium Level 3.7 mmol/L (3.5-5.1) Chloride Level 107 mmol/L (98-107) Carbon Dioxide Level 23 mmol/L (21-32) Anion Gap 11 (6-14) Blood Urea Nitrogen 17 mg/dL (7-20) Creatinine 1.3 mg/dL (0.6-1.0) Estimated GFR (Cockcroft-Gault) 38.6 Glucose Level 146 mg/dL (70-99) Calcium Level 8.2 mg/dL (8.5-10.1) TG-Lar-S-Type Natriuretic Peptide 7720 pg/mL (0-449) White Blood Count 6.0 x10^3/uL (4.0-11.0) Red Blood Count 3.40 x10^6/uL (3.50-5.40) Hemoglobin 10.5 g/dL (12.0-15.5) Hematocrit 30.9 % (36.0-47.0) Mean Corpuscular Volume 91 fL (79-100) Mean Corpuscular Hemoglobin 31 pg (25-35) Mean Corpuscular Hemoglobin Concent 34 g/dL (31-37) Red Cell Distribution Width 14.8 % (11.5-14.5) Platelet Count 109 x10^3/uL (140-400) Neutrophils (%) (Auto) 57 % (31-73) Lymphocytes (%) (Auto) 24 % (24-48) Monocytes (%) (Auto) 14 % (0-9) Eosinophils (%) (Auto) 5 % (0-3) Basophils (%) (Auto) 1 % (0-3) Neutrophils # (Auto) 3.4 x10^3uL (1.8-7.7) Lymphocytes # (Auto) 1.4 x10^3/uL (1.0-4.8) Monocytes # (Auto) 0.8 x10^3/uL (0.0-1.1) Eosinophils # (Auto) 0.3 x10^3/uL (0.0-0.7) Basophils # (Auto) 0.0 x10^3/uL (0.0-0.2) Test 04/18/17 01:35 White Blood Count 7.3 x10^3/uL (4.0-11.0) Red Blood Count 3.63 x10^6/uL (3.50-5.40) Hemoglobin 11.2 g/dL (12.0-15.5) Hematocrit 33.5 % (36.0-47.0) Mean Corpuscular Volume 92 fL (79-100) Mean Corpuscular Hemoglobin 31 pg (25-35) Mean Corpuscular Hemoglobin Concent 34 g/dL (31-37) Red Cell Distribution Width 14.8 % (11.5-14.5) Platelet Count 128 x10^3/uL (140-400) Neutrophils (%) (Auto) 58 % (31-73) Lymphocytes (%) (Auto) 23 % (24-48) Monocytes (%) (Auto) 12 % (0-9) Eosinophils (%) (Auto) 7 % (0-3) Basophils (%) (Auto) 1 % (0-3) Neutrophils # (Auto) 4.2 x10^3uL (1.8-7.7) Lymphocytes # (Auto) 1.7 x10^3/uL (1.0-4.8) Monocytes # (Auto) 0.9 x10^3/uL (0.0-1.1) Eosinophils # (Auto) 0.5 x10^3/uL (0.0-0.7) Basophils # (Auto) 0.1 x10^3/uL (0.0-0.2) Sodium Level 142 mmol/L (136-145) Potassium Level 4.2 mmol/L (3.5-5.1) Chloride Level 106 mmol/L (98-107) Carbon Dioxide Level 23 mmol/L (21-32) Anion Gap 13 (6-14) Blood Urea Nitrogen 20 mg/dL (7-20) Creatinine 1.4 mg/dL (0.6-1.0) Estimated GFR (Cockcroft-Gault) 35.4 Glucose Level 171 mg/dL (70-99) Calcium Level 8.1 mg/dL (8.5-10.1) Vancomycin Level Trough 15.0 mcg/mL (10.0-20.0) Vancomycin Last Dose Date 04/17/17 Vancomycin Last Dose Time 0200 Laboratory Tests Test 04/18/17 01:35 White Blood Count 7.3 x10^3/uL (4.0-11.0) Red Blood Count 3.63 x10^6/uL (3.50-5.40) Hemoglobin 11.2 g/dL (12.0-15.5) Hematocrit 33.5 % (36.0-47.0) Mean Corpuscular Volume 92 fL (79-100) Mean Corpuscular Hemoglobin 31 pg (25-35) Mean Corpuscular Hemoglobin Concent 34 g/dL (31-37) Red Cell Distribution Width 14.8 % (11.5-14.5) Platelet Count 128 x10^3/uL (140-400) Neutrophils (%) (Auto) 58 % (31-73) Lymphocytes (%) (Auto) 23 % (24-48) Monocytes (%) (Auto) 12 % (0-9) Eosinophils (%) (Auto) 7 % (0-3) Basophils (%) (Auto) 1 % (0-3) Neutrophils # (Auto) 4.2 x10^3uL (1.8-7.7) Lymphocytes # (Auto) 1.7 x10^3/uL (1.0-4.8) Monocytes # (Auto) 0.9 x10^3/uL (0.0-1.1) Eosinophils # (Auto) 0.5 x10^3/uL (0.0-0.7) Basophils # (Auto) 0.1 x10^3/uL (0.0-0.2) Sodium Level 142 mmol/L (136-145) Potassium Level 4.2 mmol/L (3.5-5.1) Chloride Level 106 mmol/L (98-107) Carbon Dioxide Level 23 mmol/L (21-32) Anion Gap 13 (6-14) Blood Urea Nitrogen 20 mg/dL (7-20) Creatinine 1.4 mg/dL (0.6-1.0) Estimated GFR (Cockcroft-Gault) 35.4 Glucose Level 171 mg/dL (70-99) Calcium Level 8.1 mg/dL (8.5-10.1) Vancomycin Level Trough 15.0 mcg/mL (10.0-20.0) Vancomycin Last Dose Date 04/17/17 Vancomycin Last Dose Time 0200 Medications Active Scripts Medications Dose Route/Sig Max Daily Dose Days Date Category Tramadol Hcl 50 Mg Tablet 50 Mg PO Q6H PRN 04/16/17 Reported Aspirin 81 Mg Tab.chew 81 Mg PO DAILY 04/16/17 Reported Plavix (Clopidogrel Bisulfate) 75 Mg Tablet 75 Mg PO DAILY 04/16/17 Reported Tradjenta (Linagliptin) 5 Mg Tablet 5 Mg PO DAILY 04/16/17 Reported Norvasc (Amlodipine Besylate) 10 Mg Tablet 10 Mg PO DAILY 04/16/17 Reported Gabapentin 300 Mg Capsule 300 Mg PO BID 04/16/17 Reported Furosemide 20 Mg Tablet 20 Mg PO DAILY 04/16/17 Reported Allopurinol 300 Mg Tablet 300 Mg PO DAILY 04/16/17 Reported Glyburide 2.5 Mg Tablet 1.25 Mg PO DAILY 04/16/17 Reported Metformin Hcl 500 Mg Tablet 500 Mg PO BIDWMEALS 04/16/17 Reported Docusate Sodium 100 Mg Capsule 100 Mg PO DAILY 04/16/17 Reported One-A-Day Essential (Multivitamin) 1 Each Tablet 1 Each PO DAILY 04/16/17 Reported Folic Acid 1 Mg Tablet 0.4 Mg PO DAILY 04/16/17 Reported Atorvastatin Calcium 80 Mg Tablet 80 Mg PO HS 04/16/17 Reported Prinivil (Lisinopril) 20 Mg Tablet 40 Mg PO DAILY 04/16/17 Reported Potassium Chloride 10 Meq Capsule.er 10 Meq PO DAILY 04/16/17 Reported Carvedilol 6.25 Mg Tablet 6.25 Mg PO BIDWMEALS 04/16/[address] CHEST 1. No evidence of pulmonary embolism. 2. Coronary artery calcifications. 3. Diffuse groundglass airspace opacities identified in the bilateral lungs could be pulmonary edema or infiltrates. Patchy right upper lobe, bibasilar lung airspace opacities likely pneumonia or atelectasis. 4. 2.4 cm hyperdensity identified in the right kidney could be hyperdense cyst or mass. Recommend follow-up nonemergent ultrasound kidneys. Electronically signed by: Manuelito Titus MD (04/15/2017 11:33 PM) Impression . 1. Acute resp failure sec to acute CHF and pneumonia 2. Abnormal chest x-ray./ ct chest 3. Pulmonary infiltrate 4. Status post heart valve replacement. 5. Hypertension. 6. Diabetes mellitus. 7. Hypercholesterolemia. Plan . ECHO pending 1. Titrate FiO2 to keep O2 saturation 92%. 2. bronchodilator. 3. Deescalate antibx 4. If EF low, initiate diuresis KHRIS BROOKS MD Apr 18, 2017 10:01
[2017-04-18 11:00] VITALS: BP 132/66
[2017-04-18] MEDS: ENOXAPARIN 40 MG/0.4 ML SYRINGE. SQ SCH (11:57)
--- NOTE | 2017-04-18 13:02 | PDOC ---
PROGRESS NOTES Chief Complaint Chief Complaint 1. Cough, weakness and fever, suspected healthcare-associated pneumonia vs. CHF exacerbation 2. Mild elevation of troponin, recent transcatheter aortic valve replacement. 3. Type 2 diabetes mellitus. 4. Hypertension. 5. Hyperlipidemia. 6. Obesity, BMI 39. plan: fu with pulm, card check BNP, high labs tmr cont current abx, should decrease soon check sputum cx dvt ppx dc tmr if ok with specialists History of Present Illness History of Present Illness cough slightly better Vitals Vitals Vital Signs Date Time Temp Pulse Resp B/P (MAP) Pulse Ox O2 Delivery O2 Flow Rate FiO2 04/18/17 12:23 Room Air 04/18/17 11:00 97.4 101 16 132/66 (88) 96 97.4 Physical Exam General: Alert, Oriented X3, Cooperative, No acute distress Heart: Regular rate, Normal S1, Normal S2 Lungs: Clear Abdomen: Soft Extremities: No edema, Normal pulses Skin: No significant lesion Labs LABS Laboratory Tests Test 04/18/17 01:35 White Blood Count 7.3 x10^3/uL (4.0-11.0) Red Blood Count 3.63 x10^6/uL (3.50-5.40) Hemoglobin 11.2 g/dL (12.0-15.5) Hematocrit 33.5 % (36.0-47.0) Mean Corpuscular Volume 92 fL (79-100) Mean Corpuscular Hemoglobin 31 pg (25-35) Mean Corpuscular Hemoglobin Concent 34 g/dL (31-37) Red Cell Distribution Width 14.8 % (11.5-14.5) Platelet Count 128 x10^3/uL (140-400) Neutrophils (%) (Auto) 58 % (31-73) Lymphocytes (%) (Auto) 23 % (24-48) Monocytes (%) (Auto) 12 % (0-9) Eosinophils (%) (Auto) 7 % (0-3) Basophils (%) (Auto) 1 % (0-3) Neutrophils # (Auto) 4.2 x10^3uL (1.8-7.7) Lymphocytes # (Auto) 1.7 x10^3/uL (1.0-4.8) Monocytes # (Auto) 0.9 x10^3/uL (0.0-1.1) Eosinophils # (Auto) 0.5 x10^3/uL (0.0-0.7) Basophils # (Auto) 0.1 x10^3/uL (0.0-0.2) Sodium Level 142 mmol/L (136-145) Potassium Level 4.2 mmol/L (3.5-5.1) Chloride Level 106 mmol/L (98-107) Carbon Dioxide Level 23 mmol/L (21-32) Anion Gap 13 (6-14) Blood Urea Nitrogen 20 mg/dL (7-20) Creatinine 1.4 mg/dL (0.6-1.0) Estimated GFR (Cockcroft-Gault) 35.4 Glucose Level 171 mg/dL (70-99) Calcium Level 8.1 mg/dL (8.5-10.1) Vancomycin Level Trough 15.0 mcg/mL (10.0-20.0) Vancomycin Last Dose Date 04/17/17 Vancomycin Last Dose Time 0200 Review of Systems Review of Systems no fever, chills, sob or chest pain Assessment and Plan Assessmemt and Plan Problems Medical Problems: (1) Elevated troponin Status: Acute Problems: Comment Review of Relevant I have reviewed the following items shani (where applicable) has been applied. Labs Laboratory Tests Test 04/16/17 22:05 04/17/17 03:45 04/17/17 04:00 04/18/17 01:35 Troponin I Quantitative 0.103 ng/mL (0.000-0.055) Sodium Level 141 mmol/L (136-145) 142 mmol/L (136-145) Potassium Level 3.7 mmol/L (3.5-5.1) 4.2 mmol/L (3.5-5.1) Chloride Level 107 mmol/L (98-107) 106 mmol/L (98-107) Carbon Dioxide Level 23 mmol/L (21-32) 23 mmol/L (21-32) Anion Gap 11 (6-14) 13 (6-14) Blood Urea Nitrogen 17 mg/dL (7-20) 20 mg/dL (7-20) Creatinine 1.3 mg/dL (0.6-1.0) 1.4 mg/dL (0.6-1.0) Estimated GFR (Cockcroft-Gault) 38.6 35.4 Glucose Level 146 mg/dL (70-99) 171 mg/dL (70-99) Calcium Level 8.2 mg/dL (8.5-10.1) 8.1 mg/dL (8.5-10.1) DE-Dub-A-Type Natriuretic Peptide 7720 pg/mL (0-449) White Blood Count 6.0 x10^3/uL (4.0-11.0) 7.3 x10^3/uL (4.0-11.0) Red Blood Count 3.40 x10^6/uL (3.50-5.40) 3.63 x10^6/uL (3.50-5.40) Hemoglobin 10.5 g/dL (12.0-15.5) 11.2 g/dL (12.0-15.5) Hematocrit 30.9 % (36.0-47.0) 33.5 % (36.0-47.0) Mean Corpuscular Volume 91 fL (79-100) 92 fL (79-100) Mean Corpuscular Hemoglobin 31 pg (25-35) 31 pg (25-35) Mean Corpuscular Hemoglobin Concent 34 g/dL (31-37) 34 g/dL (31-37) Red Cell Distribution Width 14.8 % (11.5-14.5) 14.8 % (11.5-14.5) Platelet Count 109 x10^3/uL (140-400) 128 x10^3/uL (140-400) Neutrophils (%) (Auto) 57 % (31-73) 58 % (31-73) Lymphocytes (%) (Auto) 24 % (24-48) 23 % (24-48) Monocytes (%) (Auto) 14 % (0-9) 12 % (0-9) Eosinophils (%) (Auto) 5 % (0-3) 7 % (0-3) Basophils (%) (Auto) 1 % (0-3) 1 % (0-3) Neutrophils # (Auto) 3.4 x10^3uL (1.8-7.7) 4.2 x10^3uL (1.8-7.7) Lymphocytes # (Auto) 1.4 x10^3/uL (1.0-4.8) 1.7 x10^3/uL (1.0-4.8) Monocytes # (Auto) 0.8 x10^3/uL (0.0-1.1) 0.9 x10^3/uL (0.0-1.1) Eosinophils # (Auto) 0.3 x10^3/uL (0.0-0.7) 0.5 x10^3/uL (0.0-0.7) Basophils # (Auto) 0.0 x10^3/uL (0.0-0.2) 0.1 x10^3/uL (0.0-0.2) Vancomycin Level Trough 15.0 mcg/mL (10.0-20.0) Vancomycin Last Dose Date 04/17/17 Vancomycin Last Dose Time 0200 Laboratory Tests Test 04/18/17 01:35 White Blood Count 7.3 x10^3/uL (4.0-11.0) Red Blood Count 3.63 x10^6/uL (3.50-5.40) Hemoglobin 11.2 g/dL (12.0-15.5) Hematocrit 33.5 % (36.0-47.0) Mean Corpuscular Volume 92 fL (79-100) Mean Corpuscular Hemoglobin 31 pg (25-35) Mean Corpuscular Hemoglobin Concent 34 g/dL (31-37) Red Cell Distribution Width 14.8 % (11.5-14.5) Platelet Count 128 x10^3/uL (140-400) Neutrophils (%) (Auto) 58 % (31-73) Lymphocytes (%) (Auto) 23 % (24-48) Monocytes (%) (Auto) 12 % (0-9) Eosinophils (%) (Auto) 7 % (0-3) Basophils (%) (Auto) 1 % (0-3) Neutrophils # (Auto) 4.2 x10^3uL (1.8-7.7) Lymphocytes # (Auto) 1.7 x10^3/uL (1.0-4.8) Monocytes # (Auto) 0.9 x10^3/uL (0.0-1.1) Eosinophils # (Auto) 0.5 x10^3/uL (0.0-0.7) Basophils # (Auto) 0.1 x10^3/uL (0.0-0.2) Sodium Level 142 mmol/L (136-145) Potassium Level 4.2 mmol/L (3.5-5.1) Chloride Level 106 mmol/L (98-107) Carbon Dioxide Level 23 mmol/L (21-32) Anion Gap 13 (6-14) Blood Urea Nitrogen 20 mg/dL (7-20) Creatinine 1.4 mg/dL (0.6-1.0) Estimated GFR (Cockcroft-Gault) 35.4 Glucose Level 171 mg/dL (70-99) Calcium Level 8.1 mg/dL (8.5-10.1) Vancomycin Level Trough 15.0 mcg/mL (10.0-20.0) Vancomycin Last Dose Date 04/17/17 Vancomycin Last Dose Time 0200 Microbiology 04/15/17 Blood Culture - Preliminary, Resulted NO GROWTH AFTER 2 DAYS Medications Current Medications Iohexol (Omnipaque 300 Mg/ml) 60 ml 1X ONCE IV ; Start 04/15/17 at 23:00; Stop 04/15/17 at 23:01; Status DC Info (Do NOT chart on this entry -- for MONITORING) 1 each PRN DAILY PRN MC SEE COMMENTS; Start 04/15/17 at 22:30; Stop 04/17/17 at 22:29; Status DC Ceftriaxone Sodium 50 ml @ 100 mls/hr 1X ONCE IV ; Start 04/16/17 at 00:30; Stop 04/16/17 at 00:30; Status DC Azithromycin 250 ml @ 250 mls/hr 1X ONCE IV ; Start 04/16/17 at 01:00; Stop at 01:00; Status DC Levofloxacin/ Dextrose 150 ml @ 100 mls/hr 1X ONCE IV Last administered on 00:54; Start 04/16/17 at 01:00; Stop 04/16/17 at 02:29; Status DC Vancomycin HCl 1.25 gm/Sodium Chloride 500 ml @ 250 mls/hr 1X STAT IV ; Start 04/16/17 at 00:18; Stop 04/16/17 at 02:17; Status UNV Piperacillin Sod/ Tazobactam Sod 4.5 gm/Sodium Chloride 100 ml @ 200 mls/hr 1X ONCE IV Last administered on 04/16/17 00:51; Start 04/16/17 at 01:00; Stop 04/16/17 at 01:29; Status DC Ondansetron HCl (Zofran) 4 mg PRN Q8HRS PRN IV NAUSEA/VOMITING; Start 04/16/17 at 00:30; Stop 04/17/17 at 00:29; Status DC Morphine Sulfate 2 mg PRN Q2HR PRN IV PAIN; Start 04/16/17 at 00:30; Stop 04/17 at 00:29; Status UNV Vancomycin HCl (Vanco Per Pharmacy) 1 each PRN DAILY PRN MC SEE COMMENTS Last administered on 04/18/17 12:38; Start 04/16/17 at 00:30 Vancomycin HCl 2 gm/Sodium Chloride 500 ml @ 250 mls/hr 1X ONCE IV Last administered on 04/16/17 01:44; Start 04/16/17 at 01:30; Stop 04/16/17 at 03:29 ; Status DC Throat Lozenges (Cepacol Sore Throat Lozenge) 1 jim PRN Q2HRS PRN PO SORE THROAT Last administered on 04/16/17 02:31; Start 04/16/17 at 02:30 Vancomycin HCl 1.5 gm/Sodium Chloride 500 ml @ 250 mls/hr Q24H IV Last administered on 04/18/17 02:57; Start 04/17/17 at 02:00 Vancomycin HCl 1 each 1X ONCE MC Last administered on 04/18/17 01:30; Start 04/18/17 at 01:30; Stop 04/18/17 at 01:31; Status DC Albuterol/ Ipratropium (Duoneb) 3 ml RTQID NEB Last administered on 04/18/17 12:23; Start 04/16/17 at 10:00 Piperacillin Sod/ Tazobactam Sod 3.375 gm/Sodium Chloride 50 ml @ 100 mls/hr Q6HRS IV Last administered on 04/18/17 11:53; Start 04/16/17 at 12:00 Vancomycin HCl (Vanco Per Pharmacy) 1 each PRN DAILY PRN MC SEE COMMENTS; Start 04/16/17 at 11:15; Status UNV Levofloxacin/ Dextrose (Levaquin Per Pharmacy) 1 each PRN DAILY PRN MC SEE COMMENTS; Start 04/16/17 at 11:15 Acetaminophen (Tylenol) 325 mg PRN Q6HRS PRN PO MILD PAIN / TEMP; Start at 11:15 Hydralazine HCl (Apresoline) 10 mg PRN Q4HRS PRN IVP ELEVATED BP, SEE COMMENTS ; Start 04/16/17 at 11:15 Ondansetron HCl (Zofran) 4 mg PRN Q8HRS PRN IV NAUSEA/VOMITING; Start 04/16/17 at 11:15 Albuterol Sulfate (Ventolin Neb Soln) 2.5 mg PRN Q4HRS PRN NEB SHORTNESS OF BREATH; Start 04/16/17 at 11:15 Allopurinol (Zyloprim) 300 mg DAILY PO Last administered on 04/18/17 09:03; Start 04/16/17 at 11:30 Amlodipine Besylate (Norvasc) 10 mg DAILY PO Last administered on 04/18/17 09: 07; Start 04/16/17 at 11:30 Aspirin (Children'S Aspirin) 81 mg DAILY PO Last administered on 04/18/17 09: 03; Start 04/16/17 at 11:30 Carvedilol (Coreg) 6.25 mg BIDWMEALS PO Last administered on 04/18/17 09:02; Start 04/16/17 at 11:30 Clopidogrel Bisulfate (Plavix) 75 mg DAILY PO Last administered on 04/18/17 09 :03; Start 04/16/17 at 11:30 Docusate Sodium (Colace) 100 mg DAILY PO Last administered on 04/18/17 09:02; Start 04/16/17 at 11:30 Folic Acid (Folic Acid) 0.4 mg DAILY PO Last administered on 04/18/17 09:04; Start 04/16/17 at 11:30 Furosemide (Lasix) 20 mg DAILY PO Last administered on 04/18/17 09:02; Start 04/16/17 at 11:30 Linagliptin (Tradjenta) 5 mg DAILY PO Last administered on 04/18/17 09:03; Start 04/16/17 at 11:30 Lisinopril (Prinivil) 40 mg DAILY PO Last administered on 04/18/17 09:03; Start 04/16/17 at 11:30 Tramadol HCl (Ultram) 50 mg PRN Q6HRS PRN PO PAIN; Start 04/16/17 at 11:15 Atorvastatin Calcium (Lipitor) 80 mg QHS PO Last administered on 04/17/17 21: 34; Start 04/16/17 at 21:00 Gabapentin (Neurontin) 300 mg BID PO Last administered on 04/18/17 09:03; Start 04/16/17 at 11:30 Glyburide (Diabeta) 1.25 mg DAILYWBKFT PO Last administered on 04/18/17 09:01 ; Start 04/16/17 at 11:30 Multivitamins (Thera M Plus) 1 tab DAILY PO Last administered on 04/18/17 09: 03; Start 04/16/17 at 11:30 Potassium Chloride (Klor-Con) 10 meq DAILYWBKFT PO Last administered on 09:03; Start 04/16/17 at 11:30 Furosemide (Lasix) 20 mg 1X ONCE IVP Last administered on 04/16/17 12:24; Start 04/16/17 at 11:15; Stop 04/16/17 at 11:18; Status DC Enoxaparin Sodium (Lovenox 40mg Syringe) 40 mg Q24H SQ Last administered on 11:57; Start 04/16/17 at 11:30 Levofloxacin/ Dextrose 150 ml @ 100 mls/hr Q48H IV Last administered on 01:17; Start 04/18/17 at 02:00 Temazepam (Restoril) 7.5 mg PRN QHS PRN PO INSOMNIA; Start 04/16/17 at 19:45; Status UNV Temazepam (Restoril) 7.5 mg PRN QHS PRN PO INSOMNIA Last administered on 21:33; Start 04/16/17 at 20:00 Furosemide (Lasix) 40 mg 1X ONCE PO Last administered on 04/17/17 16:56; Start 04/17/17 at 15:30; Stop 04/17/17 at 15:31; Status DC Active Scripts Active Reported Tramadol Hcl 50 Mg Tablet 50 Mg PO Q6H PRN Aspirin 81 Mg Tab.chew 81 Mg PO DAILY Plavix (Clopidogrel Bisulfate) 75 Mg Tablet 75 Mg PO DAILY Tradjenta (Linagliptin) 5 Mg Tablet 5 Mg PO DAILY Norvasc (Amlodipine Besylate) 10 Mg Tablet 10 Mg PO DAILY Gabapentin 300 Mg Capsule 300 Mg PO BID Furosemide 20 Mg Tablet 20 Mg PO DAILY Allopurinol 300 Mg Tablet 300 Mg PO DAILY Glyburide 2.5 Mg Tablet 1.25 Mg PO DAILY Metformin Hcl 500 Mg Tablet 500 Mg PO BIDWMEALS Docusate Sodium 100 Mg Capsule 100 Mg PO DAILY One-A-Day Essential (Multivitamin) 1 Each Tablet 1 Each PO DAILY Folic Acid 1 Mg Tablet 0.4 Mg PO DAILY Atorvastatin Calcium 80 Mg Tablet 80 Mg PO HS Prinivil (Lisinopril) 20 Mg Tablet 40 Mg PO DAILY Potassium Chloride 10 Meq Capsule.er 10 Meq PO DAILY Carvedilol 6.25 Mg Tablet 6.25 Mg PO BIDWMEALS Vitals/I & O Vital Sign - Last 24 Hours 04/17/17 04/17/17 04/17/17 04/17/17 15:00 15:47 16:56 19:44 Temp 97.0 97.5 97.0 97.5 Pulse 108 108 108 Resp 20 18 B/P (MAP) 107/53 (71) 107/53 116/68 (84) Pulse Ox 97 92 O2 Delivery Room Air Room Air Room Air 04/17/17 04/17/17 04/17/17 04/18/17 20:00 20:55 23:48 03:24 Temp 97.5 97.7 97.5 97.7 Pulse 83 97 Resp 18 18 B/P (MAP) 104/43 (63) 106/40 (62) Pulse Ox 93 92 O2 Delivery Room Air Room Air Room Air Room Air 04/18/17 04/18/17 04/18/17 04/18/17 07:00 07:37 08:20 09:02 Temp 97.5 97.5 Pulse 93 93 Resp 16 B/P (MAP) 118/52 (74) 118/52 Pulse Ox 95 90 O2 Delivery Room Air Room Air Room Air 04/18/17 04/18/17 04/18/17 04/18/17 09:03 09:07 11:00 12:23 Temp 97.4 97.4 Pulse 93 93 101 Resp 16 B/P (MAP) 118/52 118/52 132/66 (88) Pulse Ox 96 O2 Delivery Room Air Room Air Intake and Output 04/17/17 04/17/17 04/18/17 15:00 23:00 07:00 Intake Total 240 ml 240 ml 912 ml Balance 240 ml 240 ml 912 ml HERNANDEZ GAMBLE MD Apr 18, 2017 13:02
[2017-04-18 15:00] VITALS: BP 84/44
--- NOTE | 2017-04-18 15:31 | PDOC ---
CARDIO Progress Notes Date and Time Date of Service 04/18/17 Time of Evaluation 1530 Subjective Subjective: No Chest Pain, No shortness of breath Vitals Vitals Vital Signs Date Time Temp Pulse Resp B/P (MAP) Pulse Ox O2 Delivery O2 Flow Rate FiO2 04/18/17 12:23 Room Air 04/18/17 11:00 97.4 101 16 132/66 (88) 96 97.4 Weight Weight [ ] Input and Output Intake and Output Intake and Output 04/18/17 07:00 Intake Total 1392 ml Balance 1392 ml Intake Oral 680 ml Other 712 ml # Voids 9 Laboratory Labs Laboratory Tests Test 04/18/17 01:35 White Blood Count 7.3 x10^3/uL (4.0-11.0) Red Blood Count 3.63 x10^6/uL (3.50-5.40) Hemoglobin 11.2 g/dL (12.0-15.5) Hematocrit 33.5 % (36.0-47.0) Mean Corpuscular Volume 92 fL (79-100) Mean Corpuscular Hemoglobin 31 pg (25-35) Mean Corpuscular Hemoglobin Concent 34 g/dL (31-37) Red Cell Distribution Width 14.8 % (11.5-14.5) Platelet Count 128 x10^3/uL (140-400) Neutrophils (%) (Auto) 58 % (31-73) Lymphocytes (%) (Auto) 23 % (24-48) Monocytes (%) (Auto) 12 % (0-9) Eosinophils (%) (Auto) 7 % (0-3) Basophils (%) (Auto) 1 % (0-3) Neutrophils # (Auto) 4.2 x10^3uL (1.8-7.7) Lymphocytes # (Auto) 1.7 x10^3/uL (1.0-4.8) Monocytes # (Auto) 0.9 x10^3/uL (0.0-1.1) Eosinophils # (Auto) 0.5 x10^3/uL (0.0-0.7) Basophils # (Auto) 0.1 x10^3/uL (0.0-0.2) Sodium Level 142 mmol/L (136-145) Potassium Level 4.2 mmol/L (3.5-5.1) Chloride Level 106 mmol/L (98-107) Carbon Dioxide Level 23 mmol/L (21-32) Anion Gap 13 (6-14) Blood Urea Nitrogen 20 mg/dL (7-20) Creatinine 1.4 mg/dL (0.6-1.0) Estimated GFR (Cockcroft-Gault) 35.4 Glucose Level 171 mg/dL (70-99) Calcium Level 8.1 mg/dL (8.5-10.1) Vancomycin Level Trough 15.0 mcg/mL (10.0-20.0) Vancomycin Last Dose Date 04/17/17 Vancomycin Last Dose Time 0200 Microbiology Micro Microbiology 04/15/17 Blood Culture - Preliminary, Resulted NO GROWTH AFTER 2 DAYS 04/18/17 Gram Stain - Final, Complete Physical Exam HEENT: Neck Supple W Full Motion Chest: Symmetric LUNGS: Other (diminished bases ) Heart: S1S2, RRR Abdomen: Soft N/T Extremities: No Edema, No Calf Tenderness Neurology: alert, oriented, follow commands Assessment Assessment 1. Elevated troponin; peak 0.104 2. 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 Mild acute on chronic systolic CHF 4. NICM; LVEF 30% 5. Dyspnea secondary to combination of PNA and acute HF 6. Hypertension 7. Hyperlipidemia 8. Diabetes 9. CKD Recommendations Continue gentle diuresis with monitoring of renal function Recent cardiac workup at [facility] as below; none further warranted at this time. Continue secondary prevention measures. IV antibiotic therapy per pul/IM. Patient to f/u with primary cnc manufacturing engineer as previously scheduled; will defer consideration of AICD in prevention of SCD to primary cnc manufacturing engineer, on an outpatient basis. Records obtain from [facility]: - 03/27/17 underwent cardiac cath which did not reveal significant changes from prior cardiac cath. Mid LAD 50% lesion and Dx branch with 70% lesion, both of which felt not to be hemodynamically significantly. Patient underwent TAVR with a 26mm TISHA 3 device. Did have some post-op a-flutter and was cardioverted back to NSR - Echo 07/28/16 showed an EF of 30% JULIANNA SIEGEL APRN Apr 18, 2017 15:31
[2017-04-18 19:20] VITALS: BP 107/47
[2017-04-18] MEDS: ATORVASTATIN CALCIUM 40 MG TABLET. PO SCH (20:32)
[2017-04-18] MEDS: TEMAZEPAM 7.5 MG CAPSULE PO PRN (21:23)
[2017-04-18 23:10] VITALS: BP 123/88
[2017-04-19] MEDS: VANCOMYCIN 1.5 GM in IV NORMAL SALINE 500ML BAG 500 ML IV SCH (01:24)
[2017-04-19 03:46] VITALS: BP 114/70
[2017-04-19] MEDS: PIPERACILLIN/TAZOBACTAM 3.375 GM in IV NORMAL SALINE 50ML 50 ML IV SCH ×4 (05:15→23:45)
[2017-04-19 06:49] LABS: BASO # 0.1 x10^3/uL (0.0-0.2); BASO % 1 % (0-3); EOS % 7 % (0-3); HEMATOCRIT 31.4 % (36.0-47.0); HEMOGLOBIN 10.8 g/dL (12.0-15.5); LYMPH # 1.5 x10^3/uL (1.0-4.8); LYMPH % 21 % (24-48); MEAN CORPUSCULAR HEMOGLOBIN 31 pg (25-35); MEAN CORPUSCULAR HGB CONC 34 g/dL (31-37); MEAN CORPUSCULAR VOLUME 90 fL (79-100); MONO % 12 % (0-9); NEUT % 59 % (31-73); PLATELET COUNT 137 x10^3/uL (140-400); RED BLOOD COUNT 3.47 x10^6/uL (3.50-5.40); RED CELL DISTRIBUTION WIDTH 14.7 % (11.5-14.5); WHITE BLOOD COUNT 6.9 x10^3/uL (4.0-11.0)
[2017-04-19 07:00] VITALS: BP 119/47
[2017-04-19 07:09] LABS: CALCIUM 8.8 mg/dL (8.5-10.1); CREATININE 1.4 mg/dL (0.6-1.0); GFR 35.4; POTASSIUM 3.7 mmol/L (3.5-5.1)
[2017-04-19] MEDS: IPRATRPIUM/ALBUTEROL 0.5/2.5MG 3 ML NEBU. NEB SCH ×4 (07:29→19:22)
[2017-04-19] MEDS: CLOPIDOGREL BISULFATE 75 MG TABLET PO SCH (08:53)
[2017-04-19] MEDS: ALLOPURINOL 300 MG TABLET. PO SCH (08:53)
[2017-04-19] MEDS: DOCUSATE SODIUM 100 MG CAPSULE. PO SCH (08:53)
[2017-04-19] MEDS: MULTIVITAMIN with MINERAL TABLET. PO SCH (08:53)
[2017-04-19] MEDS: FOLIC ACID 1 MG TABLET. PO SCH (08:53)
[2017-04-19] MEDS: ASPIRIN CHEWABLE 81 MG TABLET. PO SCH (08:53)
[2017-04-19] MEDS: glyBURIDE 1.25 MG TABLET PO SCH (08:53)
[2017-04-19] MEDS: POTASSIUM CHLORIDE 10 MEQ TABLET.ER. PO SCH (08:54)
[2017-04-19] MEDS: FUROSEMIDE 20 MG TABLET PO SCH (08:54)
[2017-04-19] MEDS: LINAGLIPTIN 5 MG TABLET PO SCH (08:54)
[2017-04-19] MEDS: GABAPENTIN 300 MG CAPSULE. PO SCH ×2 (08:54→20:58)
[2017-04-19] MEDS: CARVEDILOL 6.25 MG TABLET. PO SCH ×2 (08:56→17:46)
[2017-04-19] MEDS: amLODIPine BESYLATE 10 MG TABLET PO SCH (08:56)
[2017-04-19] MEDS: LISINOPRIL 40 MG TABLET. PO SCH (08:56)
[2017-04-19 11:00] VITALS: BP 109/41
[2017-04-19] MEDS ORDERED: ENOXAPARIN 30 MG/0.3 ML SYRINGE. SQ SCH (11:00)
--- NOTE | 2017-04-19 11:54 | PDOC ---
PROGRESS NOTES Chief Complaint Chief Complaint 1. Cough, weakness and fever, suspected healthcare-associated pneumonia vs. systolic CHF exacerbation 2. Mild elevation of troponin, recent transcatheter aortic valve replacement. 3. Type 2 diabetes mellitus. 4. Hypertension. 5. Hyperlipidemia. 6. Obesity, BMI 39. plan: fu with pulm, card check BNP, high labs tmr cont current abx, should decrease soon check sputum cx dvt ppx lasix increased to 40mg daily as per card dc tmr if ok with specialists History of Present Illness History of Present Illness cough slightly better some yellow sputum said 100.2 at home, no fever or high WBC in hosp Vitals Vitals Vital Signs Date Time Temp Pulse Resp B/P (MAP) Pulse Ox O2 Delivery O2 Flow Rate FiO2 04/19/17 11:25 Room Air 04/19/17 11:00 97.7 89 16 109/41 (63) 93 97.7 Physical Exam General: Alert, Oriented X3, Cooperative, No acute distress Heart: Regular rate, Normal S1, Normal S2 Lungs: Clear Abdomen: Soft Extremities: No edema, Normal pulses Skin: No significant lesion Labs LABS Laboratory Tests Test 04/19/17 06:05 White Blood Count 6.9 x10^3/uL (4.0-11.0) Red Blood Count 3.47 x10^6/uL (3.50-5.40) Hemoglobin 10.8 g/dL (12.0-15.5) Hematocrit 31.4 % (36.0-47.0) Mean Corpuscular Volume 90 fL (79-100) Mean Corpuscular Hemoglobin 31 pg (25-35) Mean Corpuscular Hemoglobin Concent 34 g/dL (31-37) Red Cell Distribution Width 14.7 % (11.5-14.5) Platelet Count 137 x10^3/uL (140-400) Neutrophils (%) (Auto) 59 % (31-73) Lymphocytes (%) (Auto) 21 % (24-48) Monocytes (%) (Auto) 12 % (0-9) Eosinophils (%) (Auto) 7 % (0-3) Basophils (%) (Auto) 1 % (0-3) Neutrophils # (Auto) 4.1 x10^3uL (1.8-7.7) Lymphocytes # (Auto) 1.5 x10^3/uL (1.0-4.8) Monocytes # (Auto) 0.8 x10^3/uL (0.0-1.1) Eosinophils # (Auto) 0.5 x10^3/uL (0.0-0.7) Basophils # (Auto) 0.1 x10^3/uL (0.0-0.2) Sodium Level 141 mmol/L (136-145) Potassium Level 3.7 mmol/L (3.5-5.1) Chloride Level 108 mmol/L (98-107) Carbon Dioxide Level 22 mmol/L (21-32) Anion Gap 11 (6-14) Blood Urea Nitrogen 16 mg/dL (7-20) Creatinine 1.4 mg/dL (0.6-1.0) Estimated GFR (Cockcroft-Gault) 35.4 Glucose Level 148 mg/dL (70-99) Calcium Level 8.8 mg/dL (8.5-10.1) Review of Systems Review of Systems no fever, chills, sob or chest pain Assessment and Plan Assessmemt and Plan Problems Medical Problems: (1) Elevated troponin Status: Acute Problems: Comment Review of Relevant I have reviewed the following items shani (where applicable) has been applied. Labs Laboratory Tests Test 04/18/17 01:35 04/19/17 06:05 White Blood Count 7.3 x10^3/uL (4.0-11.0) 6.9 x10^3/uL (4.0-11.0) Red Blood Count 3.63 x10^6/uL (3.50-5.40) 3.47 x10^6/uL (3.50-5.40) Hemoglobin 11.2 g/dL (12.0-15.5) 10.8 g/dL (12.0-15.5) Hematocrit 33.5 % (36.0-47.0) 31.4 % (36.0-47.0) Mean Corpuscular Volume 92 fL (79-100) 90 fL (79-100) Mean Corpuscular Hemoglobin 31 pg (25-35) 31 pg (25-35) Mean Corpuscular Hemoglobin Concent 34 g/dL (31-37) 34 g/dL (31-37) Red Cell Distribution Width 14.8 % (11.5-14.5) 14.7 % (11.5-14.5) Platelet Count 128 x10^3/uL (140-400) 137 x10^3/uL (140-400) Neutrophils (%) (Auto) 58 % (31-73) 59 % (31-73) Lymphocytes (%) (Auto) 23 % (24-48) 21 % (24-48) Monocytes (%) (Auto) 12 % (0-9) 12 % (0-9) Eosinophils (%) (Auto) 7 % (0-3) 7 % (0-3) Basophils (%) (Auto) 1 % (0-3) 1 % (0-3) Neutrophils # (Auto) 4.2 x10^3uL (1.8-7.7) 4.1 x10^3uL (1.8-7.7) Lymphocytes # (Auto) 1.7 x10^3/uL (1.0-4.8) 1.5 x10^3/uL (1.0-4.8) Monocytes # (Auto) 0.9 x10^3/uL (0.0-1.1) 0.8 x10^3/uL (0.0-1.1) Eosinophils # (Auto) 0.5 x10^3/uL (0.0-0.7) 0.5 x10^3/uL (0.0-0.7) Basophils # (Auto) 0.1 x10^3/uL (0.0-0.2) 0.1 x10^3/uL (0.0-0.2) Sodium Level 142 mmol/L (136-145) 141 mmol/L (136-145) Potassium Level 4.2 mmol/L (3.5-5.1) 3.7 mmol/L (3.5-5.1) Chloride Level 106 mmol/L (98-107) 108 mmol/L (98-107) Carbon Dioxide Level 23 mmol/L (21-32) 22 mmol/L (21-32) Anion Gap 13 (6-14) 11 (6-14) Blood Urea Nitrogen 20 mg/dL (7-20) 16 mg/dL (7-20) Creatinine 1.4 mg/dL (0.6-1.0) 1.4 mg/dL (0.6-1.0) Estimated GFR (Cockcroft-Gault) 35.4 35.4 Glucose Level 171 mg/dL (70-99) 148 mg/dL (70-99) Calcium Level 8.1 mg/dL (8.5-10.1) 8.8 mg/dL (8.5-10.1) Vancomycin Level Trough 15.0 mcg/mL (10.0-20.0) Vancomycin Last Dose Date 04/17/17 Vancomycin Last Dose Time 0200 Laboratory Tests Test 04/19/17 06:05 White Blood Count 6.9 x10^3/uL (4.0-11.0) Red Blood Count 3.47 x10^6/uL (3.50-5.40) Hemoglobin 10.8 g/dL (12.0-15.5) Hematocrit 31.4 % (36.0-47.0) Mean Corpuscular Volume 90 fL (79-100) Mean Corpuscular Hemoglobin 31 pg (25-35) Mean Corpuscular Hemoglobin Concent 34 g/dL (31-37) Red Cell Distribution Width 14.7 % (11.5-14.5) Platelet Count 137 x10^3/uL (140-400) Neutrophils (%) (Auto) 59 % (31-73) Lymphocytes (%) (Auto) 21 % (24-48) Monocytes (%) (Auto) 12 % (0-9) Eosinophils (%) (Auto) 7 % (0-3) Basophils (%) (Auto) 1 % (0-3) Neutrophils # (Auto) 4.1 x10^3uL (1.8-7.7) Lymphocytes # (Auto) 1.5 x10^3/uL (1.0-4.8) Monocytes # (Auto) 0.8 x10^3/uL (0.0-1.1) Eosinophils # (Auto) 0.5 x10^3/uL (0.0-0.7) Basophils # (Auto) 0.1 x10^3/uL (0.0-0.2) Sodium Level 141 mmol/L (136-145) Potassium Level 3.7 mmol/L (3.5-5.1) Chloride Level 108 mmol/L (98-107) Carbon Dioxide Level 22 mmol/L (21-32) Anion Gap 11 (6-14) Blood Urea Nitrogen 16 mg/dL (7-20) Creatinine 1.4 mg/dL (0.6-1.0) Estimated GFR (Cockcroft-Gault) 35.4 Glucose Level 148 mg/dL (70-99) Calcium Level 8.8 mg/dL (8.5-10.1) Microbiology 04/15/17 Blood Culture - Preliminary, Resulted NO GROWTH AFTER 3 DAYS 04/18/17 Gram Stain - Final, Complete Medications Current Medications Iohexol (Omnipaque 300 Mg/ml) 60 ml 1X ONCE IV ; Start 04/15/17 at 23:00; Stop 04/15/17 at 23:01; Status DC Info (Do NOT chart on this entry -- for MONITORING) 1 each PRN DAILY PRN MC SEE COMMENTS; Start 04/15/17 at 22:30; Stop 04/17/17 at 22:29; Status DC Ceftriaxone Sodium 50 ml @ 100 mls/hr 1X ONCE IV ; Start 04/16/17 at 00:30; Stop 04/16/17 at 00:30; Status DC Azithromycin 250 ml @ 250 mls/hr 1X ONCE IV ; Start 04/16/17 at 01:00; Stop at 01:00; Status DC Levofloxacin/ Dextrose 150 ml @ 100 mls/hr 1X ONCE IV Last administered on 00:54; Start 04/16/17 at 01:00; Stop 04/16/17 at 02:29; Status DC Vancomycin HCl 1.25 gm/Sodium Chloride 500 ml @ 250 mls/hr 1X STAT IV ; Start 04/16/17 at 00:18; Stop 04/16/17 at 02:17; Status UNV Piperacillin Sod/ Tazobactam Sod 4.5 gm/Sodium Chloride 100 ml @ 200 mls/hr 1X ONCE IV Last administered on 04/16/17 00:51; Start 04/16/17 at 01:00; Stop 04/16/17 at 01:29; Status DC Ondansetron HCl (Zofran) 4 mg PRN Q8HRS PRN IV NAUSEA/VOMITING; Start 04/16/17 at 00:30; Stop 04/17/17 at 00:29; Status DC Morphine Sulfate 2 mg PRN Q2HR PRN IV PAIN; Start 04/16/17 at 00:30; Stop 04/17 at 00:29; Status UNV Vancomycin HCl (Vanco Per Pharmacy) 1 each PRN DAILY PRN MC SEE COMMENTS Last administered on 04/18/17 12:38; Start 04/16/17 at 00:30 Vancomycin HCl 2 gm/Sodium Chloride 500 ml @ 250 mls/hr 1X ONCE IV Last administered on 04/16/17 01:44; Start 04/16/17 at 01:30; Stop 04/16/17 at 03:29 ; Status DC Throat Lozenges (Cepacol Sore Throat Lozenge) 1 jim PRN Q2HRS PRN PO SORE THROAT Last administered on 04/16/17 02:31; Start 04/16/17 at 02:30 Vancomycin HCl 1.5 gm/Sodium Chloride 500 ml @ 250 mls/hr Q24H IV Last administered on 04/19/17 01:24; Start 04/17/17 at 02:00 Vancomycin HCl 1 each 1X ONCE MC Last administered on 04/18/17 01:30; Start 04/18/17 at 01:30; Stop 04/18/17 at 01:31; Status DC Albuterol/ Ipratropium (Duoneb) 3 ml RTQID NEB Last administered on 04/19/17 11:23; Start 04/16/17 at 10:00 Piperacillin Sod/ Tazobactam Sod 3.375 gm/Sodium Chloride 50 ml @ 100 mls/hr Q6HRS IV Last administered on 04/19/17 11:43; Start 04/16/17 at 12:00 Vancomycin HCl (Vanco Per Pharmacy) 1 each PRN DAILY PRN MC SEE COMMENTS; Start 04/16/17 at 11:15; Status UNV Levofloxacin/ Dextrose (Levaquin Per Pharmacy) 1 each PRN DAILY PRN MC SEE COMMENTS; Start 04/16/17 at 11:15 Acetaminophen (Tylenol) 325 mg PRN Q6HRS PRN PO MILD PAIN / TEMP; Start at 11:15 Hydralazine HCl (Apresoline) 10 mg PRN Q4HRS PRN IVP ELEVATED BP, SEE COMMENTS ; Start 04/16/17 at 11:15 Ondansetron HCl (Zofran) 4 mg PRN Q8HRS PRN IV NAUSEA/VOMITING; Start 04/16/17 at 11:15 Albuterol Sulfate (Ventolin Neb Soln) 2.5 mg PRN Q4HRS PRN NEB SHORTNESS OF BREATH; Start 04/16/17 at 11:15 Allopurinol (Zyloprim) 300 mg DAILY PO Last administered on 04/19/17 08:53; Start 04/16/17 at 11:30 Amlodipine Besylate (Norvasc) 10 mg DAILY PO Last administered on 04/18/17 09: 07; Start 04/16/17 at 11:30 Aspirin (Children'S Aspirin) 81 mg DAILY PO Last administered on 04/19/17 08: 53; Start 04/16/17 at 11:30 Carvedilol (Coreg) 6.25 mg BIDWMEALS PO Last administered on 04/19/17 08:56; Start 04/16/17 at 11:30 Clopidogrel Bisulfate (Plavix) 75 mg DAILY PO Last administered on 04/19/17 08 :53; Start 04/16/17 at 11:30 Docusate Sodium (Colace) 100 mg DAILY PO Last administered on 04/19/17 08:53; Start 04/16/17 at 11:30 Folic Acid (Folic Acid) 0.4 mg DAILY PO Last administered on 04/19/17 08:53; Start 04/16/17 at 11:30 Furosemide (Lasix) 20 mg DAILY PO Last administered on 04/18/17 09:02; Start 04/16/17 at 11:30; Stop 04/18/17 at 16:25; Status DC Linagliptin (Tradjenta) 5 mg DAILY PO Last administered on 04/19/17 08:54; Start 04/16/17 at 11:30 Lisinopril (Prinivil) 40 mg DAILY PO Last administered on 04/18/17 09:03; Start 04/16/17 at 11:30 Tramadol HCl (Ultram) 50 mg PRN Q6HRS PRN PO PAIN; Start 04/16/17 at 11:15 Atorvastatin Calcium (Lipitor) 80 mg QHS PO Last administered on 04/18/17 20: 32; Start 04/16/17 at 21:00 Gabapentin (Neurontin) 300 mg BID PO Last administered on 04/19/17 08:54; Start 04/16/17 at 11:30 Glyburide (Diabeta) 1.25 mg DAILYWBKFT PO Last administered on 04/19/17 08:53 ; Start 04/16/17 at 11:30 Multivitamins (Thera M Plus) 1 tab DAILY PO Last administered on 04/19/17 08: 53; Start 04/16/17 at 11:30 Potassium Chloride (Klor-Con) 10 meq DAILYWBKFT PO Last administered on 08:54; Start 04/16/17 at 11:30 Furosemide (Lasix) 20 mg 1X ONCE IVP Last administered on 04/16/17 12:24; Start 04/16/17 at 11:15; Stop 04/16/17 at 11:18; Status DC Enoxaparin Sodium (Lovenox 40mg Syringe) 40 mg Q24H SQ Last administered on 11:57; Start 04/16/17 at 11:30; Stop 04/18/17 at 14:49; Status DC Levofloxacin/ Dextrose 150 ml @ 100 mls/hr Q48H IV Last administered on 01:17; Start 04/18/17 at 02:00 Temazepam (Restoril) 7.5 mg PRN QHS PRN PO INSOMNIA; Start 04/16/17 at 19:45; Status UNV Temazepam (Restoril) 7.5 mg PRN QHS PRN PO INSOMNIA Last administered on 21:23; Start 04/16/17 at 20:00 Furosemide (Lasix) 40 mg 1X ONCE PO Last administered on 04/17/17 16:56; Start 04/17/17 at 15:30; Stop 04/17/17 at 15:31; Status DC Enoxaparin Sodium (Lovenox 30mg Syringe) 30 mg Q24H SQ Last administered on 11:48; Start 04/19/17 at 11:00 Furosemide (Lasix) 40 mg DAILY PO Last administered on 04/19/17 08:54; Start 04/19/17 at 09:00 Active Scripts Active Reported Tramadol Hcl 50 Mg Tablet 50 Mg PO Q6H PRN Aspirin 81 Mg Tab.chew 81 Mg PO DAILY Plavix (Clopidogrel Bisulfate) 75 Mg Tablet 75 Mg PO DAILY Tradjenta (Linagliptin) 5 Mg Tablet 5 Mg PO DAILY Norvasc (Amlodipine Besylate) 10 Mg Tablet 10 Mg PO DAILY Gabapentin 300 Mg Capsule 300 Mg PO BID Furosemide 20 Mg Tablet 20 Mg PO DAILY Allopurinol 300 Mg Tablet 300 Mg PO DAILY Glyburide 2.5 Mg Tablet 1.25 Mg PO DAILY Metformin Hcl 500 Mg Tablet 500 Mg PO BIDWMEALS Docusate Sodium 100 Mg Capsule 100 Mg PO DAILY One-A-Day Essential (Multivitamin) 1 Each Tablet 1 Each PO DAILY Folic Acid 1 Mg Tablet 0.4 Mg PO DAILY Atorvastatin Calcium 80 Mg Tablet 80 Mg PO HS Prinivil (Lisinopril) 20 Mg Tablet 40 Mg PO DAILY Potassium Chloride 10 Meq Capsule.er 10 Meq PO DAILY Carvedilol 6.25 Mg Tablet 6.25 Mg PO BIDWMEALS Vitals/I & O Vital Sign - Last 24 Hours 04/18/17 04/18/17 04/18/17 04/18/17 12:23 15:00 15:54 17:00 Temp 97.4 97.4 Pulse 103 103 Resp 16 B/P (MAP) 84/44 (57) 84/44 Pulse Ox 97 O2 Delivery Room Air Room Air Room Air 04/18/17 04/18/17 04/18/17 04/18/17 19:20 20:00 20:58 23:10 Temp 97.9 97.9 97.9 97.9 Pulse 94 99 Resp 18 18 B/P (MAP) 107/47 (67) 123/88 (100) Pulse Ox 92 93 93 O2 Delivery Room Air Room Air Room Air Room Air 04/19/17 04/19/17 04/19/17 04/19/17 03:46 07:00 07:30 07:31 Temp 98.0 97.8 98.0 97.8 Pulse 93 90 Resp 18 16 B/P (MAP) 114/70 (85) 119/47 (71) Pulse Ox 91 97 98 O2 Delivery Room Air Room Air Room Air Room Air 04/19/17 04/19/17 04/19/17 04/19/17 08:56 08:56 08:56 11:00 Temp 97.7 97.7 Pulse 90 90 90 89 Resp 16 B/P (MAP) 119/47 119/47 119/47 109/41 (63) Pulse Ox 93 O2 Delivery Room Air 04/19/17 11:25 O2 Delivery Room Air HERNANDEZ GAMBLE MD Apr 19, 2017 11:54
--- NOTE | 2017-04-19 12:00 | PDOC ---
PULMONARY PROGRESS NOTES Subjective PT FEELS BETTER LESS SOA Vitals Vital Signs Date Time Temp Pulse Resp B/P (MAP) Pulse Ox O2 Delivery O2 Flow Rate FiO2 04/19/17 11:25 Room Air 04/19/17 11:00 97.7 89 16 109/41 (63) 93 97.7 ROS: No Nausea, No Chest Pain, No Abdominal Pain, No Increase Cough General: Alert Lungs: Clear Cardiovascular: S1, S2 Abdomen: Soft Neuro Exam: Alert Extremities: No Edema Skin: Warm Labs Laboratory Tests Test 04/18/17 01:35 04/19/17 06:05 White Blood Count 7.3 x10^3/uL (4.0-11.0) 6.9 x10^3/uL (4.0-11.0) Red Blood Count 3.63 x10^6/uL (3.50-5.40) 3.47 x10^6/uL (3.50-5.40) Hemoglobin 11.2 g/dL (12.0-15.5) 10.8 g/dL (12.0-15.5) Hematocrit 33.5 % (36.0-47.0) 31.4 % (36.0-47.0) Mean Corpuscular Volume 92 fL (79-100) 90 fL (79-100) Mean Corpuscular Hemoglobin 31 pg (25-35) 31 pg (25-35) Mean Corpuscular Hemoglobin Concent 34 g/dL (31-37) 34 g/dL (31-37) Red Cell Distribution Width 14.8 % (11.5-14.5) 14.7 % (11.5-14.5) Platelet Count 128 x10^3/uL (140-400) 137 x10^3/uL (140-400) Neutrophils (%) (Auto) 58 % (31-73) 59 % (31-73) Lymphocytes (%) (Auto) 23 % (24-48) 21 % (24-48) Monocytes (%) (Auto) 12 % (0-9) 12 % (0-9) Eosinophils (%) (Auto) 7 % (0-3) 7 % (0-3) Basophils (%) (Auto) 1 % (0-3) 1 % (0-3) Neutrophils # (Auto) 4.2 x10^3uL (1.8-7.7) 4.1 x10^3uL (1.8-7.7) Lymphocytes # (Auto) 1.7 x10^3/uL (1.0-4.8) 1.5 x10^3/uL (1.0-4.8) Monocytes # (Auto) 0.9 x10^3/uL (0.0-1.1) 0.8 x10^3/uL (0.0-1.1) Eosinophils # (Auto) 0.5 x10^3/uL (0.0-0.7) 0.5 x10^3/uL (0.0-0.7) Basophils # (Auto) 0.1 x10^3/uL (0.0-0.2) 0.1 x10^3/uL (0.0-0.2) Sodium Level 142 mmol/L (136-145) 141 mmol/L (136-145) Potassium Level 4.2 mmol/L (3.5-5.1) 3.7 mmol/L (3.5-5.1) Chloride Level 106 mmol/L (98-107) 108 mmol/L (98-107) Carbon Dioxide Level 23 mmol/L (21-32) 22 mmol/L (21-32) Anion Gap 13 (6-14) 11 (6-14) Blood Urea Nitrogen 20 mg/dL (7-20) 16 mg/dL (7-20) Creatinine 1.4 mg/dL (0.6-1.0) 1.4 mg/dL (0.6-1.0) Estimated GFR (Cockcroft-Gault) 35.4 35.4 Glucose Level 171 mg/dL (70-99) 148 mg/dL (70-99) Calcium Level 8.1 mg/dL (8.5-10.1) 8.8 mg/dL (8.5-10.1) Vancomycin Level Trough 15.0 mcg/mL (10.0-20.0) Vancomycin Last Dose Date 04/17/17 Vancomycin Last Dose Time 0200 Laboratory Tests Test 04/19/17 06:05 White Blood Count 6.9 x10^3/uL (4.0-11.0) Red Blood Count 3.47 x10^6/uL (3.50-5.40) Hemoglobin 10.8 g/dL (12.0-15.5) Hematocrit 31.4 % (36.0-47.0) Mean Corpuscular Volume 90 fL (79-100) Mean Corpuscular Hemoglobin 31 pg (25-35) Mean Corpuscular Hemoglobin Concent 34 g/dL (31-37) Red Cell Distribution Width 14.7 % (11.5-14.5) Platelet Count 137 x10^3/uL (140-400) Neutrophils (%) (Auto) 59 % (31-73) Lymphocytes (%) (Auto) 21 % (24-48) Monocytes (%) (Auto) 12 % (0-9) Eosinophils (%) (Auto) 7 % (0-3) Basophils (%) (Auto) 1 % (0-3) Neutrophils # (Auto) 4.1 x10^3uL (1.8-7.7) Lymphocytes # (Auto) 1.5 x10^3/uL (1.0-4.8) Monocytes # (Auto) 0.8 x10^3/uL (0.0-1.1) Eosinophils # (Auto) 0.5 x10^3/uL (0.0-0.7) Basophils # (Auto) 0.1 x10^3/uL (0.0-0.2) Sodium Level 141 mmol/L (136-145) Potassium Level 3.7 mmol/L (3.5-5.1) Chloride Level 108 mmol/L (98-107) Carbon Dioxide Level 22 mmol/L (21-32) Anion Gap 11 (6-14) Blood Urea Nitrogen 16 mg/dL (7-20) Creatinine 1.4 mg/dL (0.6-1.0) Estimated GFR (Cockcroft-Gault) 35.4 Glucose Level 148 mg/dL (70-99) Calcium Level 8.8 mg/dL (8.5-10.1) Medications Active Scripts Medications Dose Route/Sig Max Daily Dose Days Date Category Tramadol Hcl 50 Mg Tablet 50 Mg PO Q6H PRN 04/16/17 Reported Aspirin 81 Mg Tab.chew 81 Mg PO DAILY 04/16/17 Reported Plavix (Clopidogrel Bisulfate) 75 Mg Tablet 75 Mg PO DAILY 04/16/17 Reported Tradjenta (Linagliptin) 5 Mg Tablet 5 Mg PO DAILY 04/16/17 Reported Norvasc (Amlodipine Besylate) 10 Mg Tablet 10 Mg PO DAILY 04/16/17 Reported Gabapentin 300 Mg Capsule 300 Mg PO BID 04/16/17 Reported Furosemide 20 Mg Tablet 20 Mg PO DAILY 04/16/17 Reported Allopurinol 300 Mg Tablet 300 Mg PO DAILY 04/16/17 Reported Glyburide 2.5 Mg Tablet 1.25 Mg PO DAILY 04/16/17 Reported Metformin Hcl 500 Mg Tablet 500 Mg PO BIDWMEALS 04/16/17 Reported Docusate Sodium 100 Mg Capsule 100 Mg PO DAILY 04/16/17 Reported One-A-Day Essential (Multivitamin) 1 Each Tablet 1 Each PO DAILY 04/16/17 Reported Folic Acid 1 Mg Tablet 0.4 Mg PO DAILY 04/16/17 Reported Atorvastatin Calcium 80 Mg Tablet 80 Mg PO HS 04/16/17 Reported Prinivil (Lisinopril) 20 Mg Tablet 40 Mg PO DAILY 04/16/17 Reported Potassium Chloride 10 Meq Capsule.er 10 Meq PO DAILY 04/16/17 Reported Carvedilol 6.25 Mg Tablet 6.25 Mg PO BIDWMEALS 04/16/[address] CHEST 1. No evidence of pulmonary embolism. 2. Coronary artery calcifications. 3. Diffuse groundglass airspace opacities identified in the bilateral lungs could be pulmonary edema or infiltrates. Patchy right upper lobe, bibasilar lung airspace opacities likely pneumonia or atelectasis. 4. 2.4 cm hyperdensity identified in the right kidney could be hyperdense cyst or mass. Recommend follow-up nonemergent ultrasound kidneys. Electronically signed by: Manuelito Titus MD (04/15/2017 11:33 PM) Impression . 1. Acute resp failure sec to acute CHF and pneumonia 2. 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 Status post heart valve replacement. 5. Hypertension. 6. Diabetes mellitus. 7. Hypercholesterolemia. Plan . ECHO REVIEWED. DECLINED EF/ FOLLOW CARDIOLOGY REC 1. Titrate FiO2 to keep O2 saturation 92%. 2. bronchodilator. 3. Deescalate antibx 4. diuresis 5. repeat cxr today d/w KHRIS Gomez MD Apr 19, 2017 12:00
[2017-04-19] MEDS: VANCOMYCIN PER PHARMACY MC PRN (13:01)
[2017-04-19 15:00] VITALS: BP 111/57
--- NOTE | 2017-04-19 15:35 | RAD ---
Portable chest, 04/19/2017: History: Congestive heart failure Comparison is made to a study from 04/15/2017. The heart is at the upper limits of normal in size. There is calcific plaquing of the aorta. The pulmonary vascularity is normal. No pulmonary infiltrates are seen. It should be noted that the faint groundglass opacities seen in the lungs on the CT study of 04/15/2017 would not be expected to be visible radiographically. There is no definite evidence of pleural fluid. IMPRESSION: No acute cardiopulmonary abnormality is detected with no significant change since 04/15/2017.
[2017-04-19 19:00] VITALS: BP 100/43
[2017-04-19] MEDS: ATORVASTATIN CALCIUM 40 MG TABLET. PO SCH (20:58)
[2017-04-19] MEDS: TEMAZEPAM 7.5 MG CAPSULE PO PRN (20:58)
[2017-04-19 23:33] VITALS: BP 120/52
[2017-04-20] MEDS: VANCOMYCIN 1.5 GM in IV NORMAL SALINE 500ML BAG 500 ML IV SCH (01:16)
[2017-04-20 03:00] VITALS: BP 126/50
[2017-04-20 05:10] LABS: BASO # 0.1 x10^3/uL (0.0-0.2); BASO % 1 % (0-3); EOS % 9 % (0-3); HEMATOCRIT 30.2 % (36.0-47.0); HEMOGLOBIN 10.2 g/dL (12.0-15.5); LYMPH # 1.6 x10^3/uL (1.0-4.8); LYMPH % 22 % (24-48); MEAN CORPUSCULAR HEMOGLOBIN 31 pg (25-35); MEAN CORPUSCULAR HGB CONC 34 g/dL (31-37); MEAN CORPUSCULAR VOLUME 92 fL (79-100); MONO % 12 % (0-9); NEUT % 56 % (31-73); PLATELET COUNT 144 x10^3/uL (140-400); RED BLOOD COUNT 3.28 x10^6/uL (3.50-5.40); RED CELL DISTRIBUTION WIDTH 15.3 % (11.5-14.5); WHITE BLOOD COUNT 7.4 x10^3/uL (4.0-11.0)
[2017-04-20 05:49] LABS: CALCIUM 8.1 mg/dL (8.5-10.1); CREATININE 1.3 mg/dL (0.6-1.0); GFR 38.6; POTASSIUM 3.7 mmol/L (3.5-5.1)
[2017-04-20] MEDS: PIPERACILLIN/TAZOBACTAM 3.375 GM in IV NORMAL SALINE 50ML 50 ML IV SCH (06:56)
[2017-04-20 07:00] VITALS: BP 118/55
[2017-04-20] MEDS: IPRATRPIUM/ALBUTEROL 0.5/2.5MG 3 ML NEBU. NEB SCH (08:29)
--- NOTE | 2017-04-20 08:57 | PDOC ---
PULMONARY PROGRESS NOTES Subjective PT FEELS BETTER Vitals Vital Signs Date Time Temp Pulse Resp B/P (MAP) Pulse Ox O2 Delivery O2 Flow Rate FiO2 04/20/17 08:30 96 Room Air 04/20/17 03:00 98.1 81 18 126/50 (75) 98.1 ROS: No Nausea, No Chest Pain, No Abdominal Pain, No Increase Cough General: Alert Lungs: Clear Cardiovascular: S1, S2 Abdomen: Soft Neuro Exam: Alert Extremities: No Edema Skin: Warm Labs Laboratory Tests Test 04/19/17 06:05 04/20/17 04:40 White Blood Count 6.9 x10^3/uL (4.0-11.0) 7.4 x10^3/uL (4.0-11.0) Red Blood Count 3.47 x10^6/uL (3.50-5.40) 3.28 x10^6/uL (3.50-5.40) Hemoglobin 10.8 g/dL (12.0-15.5) 10.2 g/dL (12.0-15.5) Hematocrit 31.4 % (36.0-47.0) 30.2 % (36.0-47.0) Mean Corpuscular Volume 90 fL (79-100) 92 fL (79-100) Mean Corpuscular Hemoglobin 31 pg (25-35) 31 pg (25-35) Mean Corpuscular Hemoglobin Concent 34 g/dL (31-37) 34 g/dL (31-37) Red Cell Distribution Width 14.7 % (11.5-14.5) 15.3 % (11.5-14.5) Platelet Count 137 x10^3/uL (140-400) 144 x10^3/uL (140-400) Neutrophils (%) (Auto) 59 % (31-73) 56 % (31-73) Lymphocytes (%) (Auto) 21 % (24-48) 22 % (24-48) Monocytes (%) (Auto) 12 % (0-9) 12 % (0-9) Eosinophils (%) (Auto) 7 % (0-3) 9 % (0-3) Basophils (%) (Auto) 1 % (0-3) 1 % (0-3) Neutrophils # (Auto) 4.1 x10^3uL (1.8-7.7) 4.1 x10^3uL (1.8-7.7) Lymphocytes # (Auto) 1.5 x10^3/uL (1.0-4.8) 1.6 x10^3/uL (1.0-4.8) Monocytes # (Auto) 0.8 x10^3/uL (0.0-1.1) 0.9 x10^3/uL (0.0-1.1) Eosinophils # (Auto) 0.5 x10^3/uL (0.0-0.7) 0.7 x10^3/uL (0.0-0.7) Basophils # (Auto) 0.1 x10^3/uL (0.0-0.2) 0.1 x10^3/uL (0.0-0.2) Sodium Level 141 mmol/L (136-145) 143 mmol/L (136-145) Potassium Level 3.7 mmol/L (3.5-5.1) 3.7 mmol/L (3.5-5.1) Chloride Level 108 mmol/L (98-107) 108 mmol/L (98-107) Carbon Dioxide Level 22 mmol/L (21-32) 26 mmol/L (21-32) Anion Gap 11 (6-14) 9 (6-14) Blood Urea Nitrogen 16 mg/dL (7-20) 12 mg/dL (7-20) Creatinine 1.4 mg/dL (0.6-1.0) 1.3 mg/dL (0.6-1.0) Estimated GFR (Cockcroft-Gault) 35.4 38.6 Glucose Level 148 mg/dL (70-99) 120 mg/dL (70-99) Calcium Level 8.8 mg/dL (8.5-10.1) 8.1 mg/dL (8.5-10.1) Laboratory Tests Test 04/20/17 04:40 White Blood Count 7.4 x10^3/uL (4.0-11.0) Red Blood Count 3.28 x10^6/uL (3.50-5.40) Hemoglobin 10.2 g/dL (12.0-15.5) Hematocrit 30.2 % (36.0-47.0) Mean Corpuscular Volume 92 fL (79-100) Mean Corpuscular Hemoglobin 31 pg (25-35) Mean Corpuscular Hemoglobin Concent 34 g/dL (31-37) Red Cell Distribution Width 15.3 % (11.5-14.5) Platelet Count 144 x10^3/uL (140-400) Neutrophils (%) (Auto) 56 % (31-73) Lymphocytes (%) (Auto) 22 % (24-48) Monocytes (%) (Auto) 12 % (0-9) Eosinophils (%) (Auto) 9 % (0-3) Basophils (%) (Auto) 1 % (0-3) Neutrophils # (Auto) 4.1 x10^3uL (1.8-7.7) Lymphocytes # (Auto) 1.6 x10^3/uL (1.0-4.8) Monocytes # (Auto) 0.9 x10^3/uL (0.0-1.1) Eosinophils # (Auto) 0.7 x10^3/uL (0.0-0.7) Basophils # (Auto) 0.1 x10^3/uL (0.0-0.2) Sodium Level 143 mmol/L (136-145) Potassium Level 3.7 mmol/L (3.5-5.1) Chloride Level 108 mmol/L (98-107) Carbon Dioxide Level 26 mmol/L (21-32) Anion Gap 9 (6-14) Blood Urea Nitrogen 12 mg/dL (7-20) Creatinine 1.3 mg/dL (0.6-1.0) Estimated GFR (Cockcroft-Gault) 38.6 Glucose Level 120 mg/dL (70-99) Calcium Level 8.1 mg/dL (8.5-10.1) Medications Active Scripts Medications Dose Route/Sig Max Daily Dose Days Date Category Tramadol Hcl 50 Mg Tablet 50 Mg PO Q6H PRN 04/16/17 Reported Aspirin 81 Mg Tab.chew 81 Mg PO DAILY 04/16/17 Reported Plavix (Clopidogrel Bisulfate) 75 Mg Tablet 75 Mg PO DAILY 04/16/17 Reported Tradjenta (Linagliptin) 5 Mg Tablet 5 Mg PO DAILY 04/16/17 Reported Norvasc (Amlodipine Besylate) 10 Mg Tablet 10 Mg PO DAILY 04/16/17 Reported Gabapentin 300 Mg Capsule 300 Mg PO BID 04/16/17 Reported Furosemide 20 Mg Tablet 20 Mg PO DAILY 04/16/17 Reported Allopurinol 300 Mg Tablet 300 Mg PO DAILY 04/16/17 Reported Glyburide 2.5 Mg Tablet 1.25 Mg PO DAILY 04/16/17 Reported Metformin Hcl 500 Mg Tablet 500 Mg PO BIDWMEALS 04/16/17 Reported Docusate Sodium 100 Mg Capsule 100 Mg PO DAILY 04/16/17 Reported One-A-Day Essential (Multivitamin) 1 Each Tablet 1 Each PO DAILY 04/16/17 Reported Folic Acid 1 Mg Tablet 0.4 Mg PO DAILY 04/16/17 Reported Atorvastatin Calcium 80 Mg Tablet 80 Mg PO HS 04/16/17 Reported Prinivil (Lisinopril) 20 Mg Tablet 40 Mg PO DAILY 04/16/17 Reported Potassium Chloride 10 Meq Capsule.er 10 Meq PO DAILY 04/16/17 Reported Carvedilol 6.25 Mg Tablet 6.25 Mg PO BIDWMEALS 04/16/[address] CHEST 1. No evidence of pulmonary embolism. 2. Coronary artery calcifications. 3. Diffuse groundglass airspace opacities identified in the bilateral lungs could be pulmonary edema or infiltrates. Patchy right upper lobe, bibasilar lung airspace opacities likely pneumonia or atelectasis. 4. 2.4 cm hyperdensity identified in the right kidney could be hyperdense cyst or mass. Recommend follow-up nonemergent ultrasound kidneys. Electronically signed by: Manuelito Titus MD (04/15/2017 11:33 PM) Impression . 1. Acute resp failure sec to acute CHF and pneumonia, resolved 2. Abnormal chest x-ray./ ct chest 3. 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 Status post heart valve replacement. 5. Hypertension. 6. Diabetes mellitus. 7. Hypercholesterolemia. Plan . ECHO REVIEWED. DECLINED EF/ FOLLOW CARDIOLOGY REC 1. Titrate FiO2 to keep O2 saturation 92%. 2. bronchodilator. 3. change to PO antibx 4. diuresis 5. repeat cxr clear d/w PCP/OK WITH DC HOME TODAY KHRIS BROOKS MD Apr 20, 2017 08:57
[2017-04-20] MEDS ORDERED: FOLIC ACID 1 MG TABLET. PO SCH (09:00)
[2017-04-20] MEDS: FUROSEMIDE 20 MG TABLET PO SCH (09:11)
[2017-04-20] MEDS: GABAPENTIN 300 MG CAPSULE. PO SCH (09:11)
[2017-04-20] MEDS: glyBURIDE 1.25 MG TABLET PO SCH (09:11)
[2017-04-20] MEDS: LINAGLIPTIN 5 MG TABLET PO SCH (09:12)
[2017-04-20] MEDS: MULTIVITAMIN with MINERAL TABLET. PO SCH (09:12)
[2017-04-20] MEDS: ASPIRIN CHEWABLE 81 MG TABLET. PO SCH (09:12)
[2017-04-20] MEDS: POTASSIUM CHLORIDE 10 MEQ TABLET.ER. PO SCH (09:12)
[2017-04-20] MEDS: CLOPIDOGREL BISULFATE 75 MG TABLET PO SCH (09:12)
[2017-04-20] MEDS: DOCUSATE SODIUM 100 MG CAPSULE. PO SCH (09:12)
[2017-04-20] MEDS: ALLOPURINOL 300 MG TABLET. PO SCH (09:12)
[2017-04-20 09:18] VITALS: BP 118/55
[2017-04-20] MEDS: CARVEDILOL 6.25 MG TABLET. PO SCH (09:18)
[2017-04-20] MEDS: amLODIPine BESYLATE 10 MG TABLET PO SCH (09:22)
[2017-04-20] MEDS: LISINOPRIL 40 MG TABLET. PO SCH (09:22)
[2017-04-20] MEDS ORDERED: LEVO750T31 PO (09:45)
[2017-04-20] MEDS ORDERED: FURO20TA3 PO (09:45)
--- NOTE | 2017-04-20 12:53 | PDOC3 ---
Discharge Summary [facility] Date of Admission: Apr 16, 2017 Discharge Date: Apr 20, 2017 Admitting Diagnosis 1. Cough, weakness and fever, suspected healthcare-associated pneumonia vs. systolic CHF exacerbation 2. Mild elevation of troponin, recent transcatheter aortic valve replacement. 3. Type 2 diabetes mellitus. 4. Hypertension. 5. Hyperlipidemia. 6. Obesity, BMI 39. plan: fu with pulm, card check BNP, high labs tmr cont current abx, should decrease soon check sputum cx dvt ppx lasix increased to 40mg daily as per card dc tmr if ok with specialists History of Present Illness History of Present Illness cough slightly better some yellow sputum said 100.2 at home, no fever or high WBC in hosp Vitals Vitals Vital Signs Date Time Temp Pulse Resp B/P (MAP) Pulse Ox O2 Delivery O2 Flow Rate FiO2 04/19/17 11:25 Room Air 04/19/17 11:00 97.7 89 16 109/41 (63) 93 97.7 Physical Exam Problems: Final Diagnosis CONSULTS card pulm Brief Hospital Course Ms. Hernandez is a 87 old F, recent [facility], comes here for sob. CXR neg, CT showed possible pna or chf. EF 07/2016 30%, no ICD. pt said T 100.2, with yellow mucus sputum, no fever here, no leukocytosis here, this is more towards to CHF exacerbation. Pt is treated for both chf and HAP, feels good except some cough with some mucus. stable to dc home with HH, levaquin for another 3 times, lasix increased to 40mg daily. dc time 40min. General: Alert, Oriented X3, Cooperative, No acute distress Heart: Regular rate, Normal S1, Normal S2 Lungs: Clear Abdomen: Soft Extremities: No edema, Normal pulses Skin: No significant lesion Problems: Disposition home CONDITION AT DISCHARGE: Improved Diet cardiac Scheduled Allopurinol (Allopurinol), 300 MG PO DAILY, (Reported) Amlodipine Besylate (Norvasc), 10 MG PO DAILY, (Reported) Aspirin (Aspirin), 81 MG PO DAILY, (Reported) Atorvastatin Calcium (Atorvastatin Calcium), 80 MG PO HS, (Reported) Carvedilol (Carvedilol), 6.25 MG PO BIDWMEALS, (Reported) Clopidogrel Bisulfate (Plavix), 75 MG PO DAILY, (Reported) Docusate Sodium (Docusate Sodium), 100 MG PO DAILY, (Reported) Folic Acid (Folic Acid), 0.4 MG PO DAILY, (Reported) Furosemide (Furosemide), 40 MG PO DAILY Gabapentin (Gabapentin), 300 MG PO BID, (Reported) Glyburide (Glyburide), 1.25 MG PO DAILY, (Reported) Levofloxacin (Levaquin), 750 MG PO QODAY Linagliptin (Tradjenta), 5 MG PO DAILY, (Reported) Lisinopril (Prinivil), 40 MG PO DAILY, (Reported) Metformin Hcl (Metformin Hcl), 500 MG PO BIDWMEALS, (Reported) Multivitamin (One-A-Day Essential), 1 EACH PO DAILY, (Reported) Potassium Chloride (Potassium Chloride), 10 MEQ PO DAILY, (Reported) Scheduled PRN Tramadol Hcl (Tramadol Hcl), 50 MG PO Q6H PRN for PAIN, (Reported) Discontinued Medications Furosemide (Furosemide), 20 MG PO DAILY, (Reported) Follow Up pcp in 2 weeks HERNANDEZ GAMBLE MD Apr 20, 2017 12:53
== END 2017-04-20 11:00 | disposition home or self-care (01) | DRG 291 ==
LOC: ER 20:36 → 4 NORTH 04-16 00:21
PROVIDERS: ADMIT Internal Medicine; ATTEND Internal Medicine
DX: I50.43 Acute on chronic combined systolic (congestive) and diastolic (congestive) heart failure (principal); J18.9 Pneumonia, unspecified organism; J96.00 Acute respiratory failure, unspecified whether with hypoxia or hypercapnia; I13.0 Hypertensive heart and chronic kidney disease with heart failure and stage 1 through stage 4 chronic kidney disease, or unspecified chronic kidney disease; I42.9 Cardiomyopathy, unspecified; E11.22 Type 2 diabetes mellitus with diabetic chronic kidney disease; E66.9 Obesity, unspecified; E78.00 Pure hypercholesterolemia, unspecified; E78.5 Hyperlipidemia, unspecified; I25.10 Atherosclerotic heart disease of native coronary artery without angina pectoris; I35.0 Nonrheumatic aortic (valve) stenosis; K21.9 Gastro-esophageal reflux disease without esophagitis; M10.9 Gout, unspecified; N18.9 Chronic kidney disease, unspecified; Y95 Nosocomial condition; Z68.39 Body mass index [BMI] 39.0-39.9, adult; Z82.49 Family history of ischemic heart disease and other diseases of the circulatory system; Z86.73 Personal history of transient ischemic attack (TIA), and cerebral infarction without residual deficits; Z96.653 Presence of artificial knee joint, bilateral; Z95.2 Presence of prosthetic heart valve; M19.90 Unspecified osteoarthritis, unspecified site; Z88.5 Allergy status to narcotic agent; Z90.49 Acquired absence of other specified parts of digestive tract; Z90.89 Acquired absence of other organs
CPT/HCPCS: 36415; 71010; 71275; 80048; 80053; 80202; 81001; 82962; 83605; 83690; 83880; 84484; 85027; 87040; 87070; 87205; 93005; 94250; 94640; 94760; 96365; 96368; J1650; J1956; J2543; J3370; J7040; J7620; 97110; 97116; 99285-25